=== PATIENT | female | born 1970 | race Caucasian/White ===

== ENCOUNTER → 2016-06-29 | Outpatient (CLI) | payer BC ==
--- NOTE | 2016-06-30 11:08 | MM ---
Reason for exam: screening (asymptomatic). Last mammogram was performed 1 year ago. History: Patient is nulliparous. Family history of breast cancer in paternal aunt at age 60 and breast cancer in paternal cousin at age 30. Taking hormonal contraceptives for 23 years beginning at age 18. Physical Findings: A clinical breast exam by your physician is recommended on an annual basis and results should be correlated with mammographic findings. MG Screening Mammo w CAD Bilateral CC and MLO view(s) were taken. Prior study comparison: June 27, 2015, bilateral MG screening mammo w CAD. August 02, 2014, bilateral MG screening mammo w CAD. June 29, 2013, bilateral digital screening mammo w/CAD. There are scattered fibroglandular densities. Finding: There are few typically benign round calcifications in the left breast. There is no discrete abnormality. ASSESSMENT: Benign, BI-RAD 2 RECOMMENDATION: Routine screening mammogram of both breasts in 1 year.
== END | disposition home or self-care (01) ==
LOC: RADMAMWWP 07:10
PROVIDERS: ATTEND Family Medicine
DX: Z12.31 Encounter for screening mammogram for malignant neoplasm of breast (principal)

== ENCOUNTER → 2017-08-25 | Outpatient (CLI) | payer BC ==
--- NOTE | 2017-08-26 09:49 | MM ---
Reason for exam: screening (asymptomatic). Last mammogram was performed 1 year and 2 months ago. History: Patient is nulliparous. Family history of breast cancer in paternal aunt at age 60 and breast cancer in paternal cousin at age 30. Taking hormonal contraceptives for 23 years beginning at age 18. Physical Findings: A clinical breast exam by your physician is recommended on an annual basis and results should be correlated with mammographic findings. MG 3D Screening Mammo W/Cad Bilateral CC and MLO view(s) were taken. Prior study comparison: June 29, 2016, bilateral MG screening mammo w CAD. June 27, 2015, bilateral MG screening mammo w CAD. There are scattered fibroglandular densities. No significant changes when compared with prior studies. ASSESSMENT: Benign, BI-RAD 2 RECOMMENDATION: Routine screening mammogram of both breasts in 1 year.
== END | disposition home or self-care (01) ==
LOC: RADMAMWWP 14:42
PROVIDERS: ATTEND Family Medicine
DX: Z12.31 Encounter for screening mammogram for malignant neoplasm of breast (principal)
CPT/HCPCS: 77063; 77067

== ENCOUNTER → 2018-09-14 | Outpatient (CLI) | payer BC ==
--- NOTE | 2018-09-15 15:03 | MM ---
Reason for exam: screening (asymptomatic). Last mammogram was performed 1 year and 1 month ago. History: Patient is nulliparous. Family history of breast cancer in paternal aunt at age 60 and breast cancer in paternal cousin at age 30. Taking hormonal contraceptives for 30 years beginning at age 18. Physical Findings: A clinical breast exam by your physician is recommended on an annual basis and results should be correlated with mammographic findings. MG 3D Screening Mammo W/Cad Bilateral CC, MLO, and XCCL view(s) were taken. Prior study comparison: August 25, 2017, bilateral MG 3d screening mammo w/cad. June 29, 2016, bilateral MG screening mammo w CAD. There are scattered fibroglandular densities. No suspicious abnormality. No significant changes when compared with prior studies. ASSESSMENT: Negative, BI-RAD 1 RECOMMENDATION: Routine screening mammogram of both breasts in 1 year.
== END | disposition home or self-care (01) ==
LOC: RADMAMWWP 14:01
PROVIDERS: ATTEND Family Medicine
DX: Z12.31 Encounter for screening mammogram for malignant neoplasm of breast (principal)
CPT/HCPCS: 77063; 77067

== ENCOUNTER 2018-11-15 10:47 | Day surgery (SDC) | payer BC ==
[2018-11-13 14:50] VITALS: BMI 41.1
[~2018-11-15 10:47] MED LIST: LACTATED RINGERS 1,000 ML IV SCH; LIDOCAINE 1% 20 ML VIAL (10MG/ML) FOR IV START INTRADERMA PRN
--- NOTE | 2018-11-15 10:50 | P.GSHP ---
History of Present Illness H&P Date: 11/15/18 CHIEF COMPLAINT: Colon screen HISTORY OF PRESENT ILLNESS: The patient is a 48-year-old female who presents for colon screen. Lower endoscopy was offered for further evaluation and management. PAST MEDICAL HISTORY: Please see list. PAST SURGICAL HISTORY: Please see list. MEDICATIONS: Please see list. ALLERGIES: Please see list. SOCIAL HISTORY: No illicit drug use FAMILY HISTORY: No reports of Crohn disease or ulcerative colitis. REVIEW OF ORGAN SYSTEMS: CONSTITUTIONAL: No reports of fevers or chills. PHYSICAL EXAM: VITAL SIGNS: Stable GENERAL: Well-developed pleasant in no acute distress. HEENT: No scleral icterus. Extraocular movements grossly intact. Moist buccal mucosa. NECK: Supple without lymphadenopathy. CHEST: Unlabored respirations. Equal bilateral excursions. CARDIOVASCULAR: Regular rate and rhythm. Distal 2+ pulses. ABDOMEN: Soft, nontender, nondistended. MUSCULOSKELETAL: No clubbing, cyanosis, or edema. ASSESSMENT: 1. Colon screen. PLAN: 1. Recommend proceeding with a lower endoscopy Past Medical History Past Medical History: GERD/Reflux Additional Past Medical History / Comment(s): HX KIDNEY STONES, History of Any Multi-Drug Resistant Organisms: None Reported Additional Past Surgical History / Comment(s): WISDOM TEETH REMOVED. COLONOSCOPY. DENTAL IMPLANTS Past Anesthesia/Blood Transfusion Reactions: Motion Sickness Additional Past Anesthesia/Blood Transfusion Reaction / Comment(s): NEVER HAS HAD GENERAL ANETHESIA Smoking Status: Former smoker - Past Family History Mother Additional Family Medical History / Comment(s): TO DELAYED DROWNING Father Family Medical History: Dementia Additional Family Medical History / Comment(s): ALZHEIMER'S Sister(s) Family Medical History: Cancer Additional Family Medical History / Comment(s): SISTER AND NIECE-CERVICAL CA Medications and Allergies Home Medications Medication Instructions Recorded Confirmed Type Norgestimate-Ethinyl Estradiol 1 each PO QAM 06/18/14 11/13/18 History [Tri-Sprintec Tablet] Allergies Allergy/AdvReac Type Severity Reaction Status Date / Time Penicillins Allergy THRUSH Verified 11/13/18 14:43 codeine AdvReac Nausea & Verified 11/13/18 14:43 Vomiting
[2018-11-15 11:10] VITALS: TEMP 98
[2018-11-15] MEDS ORDERED: LIDOCAINE 1% INJ 10MG/ML (20 ML MDV) ONE (12:37)
[2018-11-15] MEDS ORDERED: PROPOFOL 10 MG/ML 20 ML VIAL IV ONE (12:37)
--- NOTE | 2018-11-15 13:05 | P.PCN ---
Date of Procedure: 11/15/18 Description of Procedure: PREOPERATIVE DIAGNOSIS: Colonoscopy screening, high risk Family history of colon polyps, father POSTOPERATIVE DIAGNOSIS: Colonoscopy screening, high risk Family history of colon polyps, father Colon polyp sigmoid and descending colon OPERATION: Colonoscopy to the ileocecal valve and appendiceal orifice. Colonoscopy with multiple polypectomies using cold forceps biopsies. SURGEON: Macie Vega MD. ANESTHESIA: MAC. INDICATIONS: The patient is a 53-year-old female who presents for colonoscopy screening. She has family history of colon polyps. Benefits and risks were described and informed consent was obtained. DESCRIPTION OF PROCEDURE: The patient had undergone Gatorade, MiraLAX and Dulcolax prep. She had been brought into the operating room and laid in the left lateral decubitus position. After adequate intravenous sedation, the rectum was examined with 2% lidocaine jelly. No external hemorrhoids were encountered. The rectal tone was within normal limits. No lesions were palpated in the rectal vault. An Olympus colonoscope was advanced until the ileocecal valve and appendiceal orifice were clearly viewed. The prep was good. Abdominal wall pressure was used to advance the scope. No scattered diverticulosis was encountered. Multiple colonic poly ps were found and cold forcep biopsy. No evidence of focal colitis was found. Retroflexion of the scope demonstrated grade 1 internal hemorrhoids without active bleeding or inflammation. The colon was desufflated. The patient had tolerated the procedure well. Withdrawal time was over 6 minutes. FINDINGS: Aronchick preparation quality scale 2 (1-5) Internal hemorrhoids, grade 1 No external hemorrhoids No arteriovenous malformations. Removal of 3 polyps: - Cold forceps biopsy at 35 cm from the anal verge, 4 mm polyp. - Cold forceps biopsy at 20 cm from the anal verge, 3 mm polyp. - Cold forceps biopsy at 18 cm from the anal verge, 4 mm polyp. No sigmoid diverticulosis No focal colitis. RECOMMENDATIONS: Repeat colonoscopy in 5 years, 2023 Plan - Discharge Summary Discharge Rx Participant: No New Discharge Prescriptions: No Action Norgestimate-Ethinyl Estradiol [Tri-Sprintec Tablet] 1 each PO QAM Discharge Medication List Norgestimate-Ethinyl Estradiol [Tri-Sprintec Tablet] 1 each PO QAM 06/18/14 [History] Follow up Appointment(s)/Referral(s): Macie Vega MD [STAFF PHYSICIAN] - As Needed Patient Instructions/Handouts: Colorectal Polyps (DC) Activity/Diet/Wound Care/Special Instructions: Repeat colonoscopy in 5 years, 2023 Discharge Disposition: HOME SELF-CARE
[2018-11-15 13:25] VITALS: BP 131/81; PULSE 76; RESP 18
== END 2018-11-15 13:34 | disposition home or self-care (01) ==
LOC: ORWHC2ENDO 10:47
PROVIDERS: ATTEND Surgery Plastic and Reconstructive Surgery
DX: Z12.11 Encounter for screening for malignant neoplasm of colon (principal); K63.5 Polyp of colon; K64.0 First degree hemorrhoids; K21.9 Gastro-esophageal reflux disease without esophagitis; E66.01 Morbid (severe) obesity due to excess calories; Z68.41 Body mass index [BMI] 40.0-44.9, adult; Z87.891 Personal history of nicotine dependence; Z79.3 Long term (current) use of hormonal contraceptives; Z81.8 Family history of other mental and behavioral disorders; Z87.442 Personal history of urinary calculi; Z88.5 Allergy status to narcotic agent; Z88.0 Allergy status to penicillin; Z80.49 Family history of malignant neoplasm of other genital organs
CPT/HCPCS: 81025; 88305; 45380; J2001; J2704

== ENCOUNTER → 2019-01-08 | Outpatient (CLI) | payer BC ==
--- NOTE | 2019-01-08 15:06 | P.HPBAR ---
Bariatric H&P - History & Physicial H&P Date: 01/08/19 History & Physicial: Visit/CC: Patient initial contact: Initial weight: Initial weight in pounds: Height: Initial BMI: Last weight: Current weight: 243 Current weight in pounds: Current BMI: [place] body weight (based on NIH guidelines): Excess body weight loss: The patient is a 48 year-old F who presents for Bariatric Assessment. Presents today for sleeve gastrectomy consultation. Patient is a morbidly obese. Her BM I is over 40. She has failed multiple attempts to lose weight in the past. She has multiple comorbidities. Past Medical History Past Medical History: GERD/Reflux Additional Past Medical History / Comment(s): HX KIDNEY STONES, History of Any Multi-Drug Resistant Organisms: None Reported Additional Past Surgical History / Comment(s): WISDOM TEETH REMOVED. COLONOSCOPY. DENTAL IMPLANTS Past Anesthesia/Blood Transfusion Reactions: Motion Sickness Additional Past Anesthesia/Blood Transfusion Reaction / Comm: NEVER HAS HAD GENERAL ANETHESIA Smoking Status: Former smoker - Past Family History Mother Additional Family Medical History / Comment(s): TO DELAYED DROWNING Father Family Medical History: Dementia Additional Family Medical History / Comment(s): ALZHEIMER'S Sister(s) Family Medical History: Cancer Additional Family Medical History / Comment(s): SISTER AND NIECE-CERVICAL CA Surgical - Exam - General well developed, well nourished, no distress - Eyes PERRL - ENT normal pinna - Neck no masses - Respiratory normal expansion - Cardiovascular Rhythm: regular - Abdomen Abdomen: soft, non tender Bariatric Assessment & Plan Plan: RBC, patient will be scheduled for EGD. She'll follow-up in the clinic with month. Discussion regarding sleeve gastrectomy. When over the risks and benefits of procedure including gastric staple line disruption, bleeding or scarring. Bariatric Checklist Checklist: Plan: Checklist: EGD: 1. Hiatal hernia: 2. H. Pylori: HgbA1c: Vitamin D: Smoking: Former smoker Primary care physician referral: Psychiatry clearance: Cardiology clearance: Sleep study: Diet journal: VTE risk score: VTE risk level: Rehab needs at discharge:
[2019-01-08 15:13] VITALS: BP 150/86; PULSE 86; RESP 16; TEMP 98.2; BMI 40.1
== END ==
LOC: BARWHC3 14:29
PROVIDERS: ATTEND Surgery
DX: E66.01 Morbid (severe) obesity due to excess calories (principal); Z68.41 Body mass index [BMI] 40.0-44.9, adult; Z87.891 Personal history of nicotine dependence
CPT/HCPCS: 99211

== ENCOUNTER 2019-03-02 07:06 | Day surgery (SDC) | payer BC ==
[2019-02-28 17:33] VITALS: BMI 41.1
[2019-03-02] MEDS ORDERED: LACTATED RINGERS 1,000 ML IV ONE (07:13)
[2019-03-02 07:26] VITALS: TEMP 98.6
[2019-03-02] MEDS ORDERED: LIDOCAINE 1% INJ 10MG/ML (20 ML MDV) ONE (07:40)
[2019-03-02] MEDS ORDERED: PROPOFOL 10 MG/ML 20 ML VIAL IV ONE (07:40)
[2019-03-02] MEDS ORDERED: GLYCOPYRROLATE 0.2 MG/ML 2 ML VIAL ONE (07:40)
--- NOTE | 2019-03-02 07:53 | P.GSHP ---
History of Present Illness H&P Date: 03/02/19 Chief Complaint: Morbid obesity, BMI 41 This is a 49-year-old female who presents today for EGD. Patient morbid obese. She is undergoing workup for sleeve gastrectomy. Her BMI is 41. Past Medical History Past Medical History: Osteoarthritis (OA) Additional Past Medical History / Comment(s): HX KIDNEY STONES, History of Any Multi-Drug Resistant Organisms: None Reported Additional Past Surgical History / Comment(s): WISDOM TEETH REMOVED. COLONOSCOPY. DENTAL IMPLANTS Past Anesthesia/Blood Transfusion Reactions: No Reported Reaction, Motion Sickness Additional Past Anesthesia/Blood Transfusion Reaction / Comment(s): NEVER HAS HAD GENERAL ANETHESIA Smoking Status: Former smoker - Past Family History Mother Additional Family Medical History / Comment(s): TO DELAYED DROWNING Father Family Medical History: Dementia Additional Family Medical History / Comment(s): ALZHEIMER'S Sister(s) Family Medical History: Cancer Additional Family Medical History / Comment(s): SISTER AND NIECE-CERVICAL CA Medications and Allergies Home Medications Medication Instructions Recorded Confirmed Type Norgestimate-Ethinyl Estradiol 1 each PO QAM 06/18/14 02/28/19 History [Tri-Sprintec Tablet] Multivitamins, Thera [Multivitamin 1 tab PO DAILY 01/08/19 02/28/19 History (formulary)] Potassium 99 mg PO DAILY 02/28/19 02/28/19 History Allergies Allergy/AdvReac Type Severity Reaction Status Date / Time codeine AdvReac Nausea & Verified 02/28/19 17:12 Vomiting Penicillins AdvReac THRUSH Verified 02/28/19 17:12 Surgical - Exam Vital Signs Temp Pulse Resp BP Pulse Ox 98.6 F 74 14 149/72 95 03/02/19 07:19 03/02/19 07:19 03/02/19 07:19 03/02/19 07:19 03/02/19 07:19 - General well developed, well nourished, no distress - Eyes PERRL - ENT normal pinna - Neck no masses - Respiratory normal expansion - Cardiovascular Rhythm: regular - Abdomen Abdomen: soft, non tender Assessment and Plan Assessment: Morbid obesity, BMI 41. We'll perform EGD.
--- NOTE | 2019-03-02 07:58 | P.OP ---
Date of Procedure: 03/02/19 Preoperative Diagnosis: Morbid obesity, BMI 41 Postoperative Diagnosis: Morbid obesity, BMI 41 Antral gastritis Procedure(s) Performed: EGD Anesthesia: MAC Surgeon: Nemesio Holguin Pathology: other (Antrum) Condition: stable Disposition: PACU Description of Procedure: Patient's placed on the endoscopy table in the lateral position. She received IV sedation. The gastroscope placed oropharynx and passed in the esophagus and into the stomach. Scope was then placed through the pylorus. First and second portion of the duodenum appeared normal. Scope was then brought back the antrum this appeared mildly inflamed. A biopsies performed. Scope was unretroflexed and remainder the stomach appeared normal. There is no significant hiatal hernia. The GE junction was at 40 cm. The distal esophagus. Normal. The proximal esophagus. Normal. Scope was withdrawn for patient.
[2019-03-02 08:17] VITALS: BP 145/76; PULSE 87; RESP 18
== END 2019-03-02 08:36 | disposition home or self-care (01) ==
LOC: ORWHC2ENDO 07:06
PROVIDERS: ATTEND Surgery
DX: K29.50 Unspecified chronic gastritis without bleeding (principal); E66.01 Morbid (severe) obesity due to excess calories; Z68.41 Body mass index [BMI] 40.0-44.9, adult; M19.90 Unspecified osteoarthritis, unspecified site; Z87.442 Personal history of urinary calculi; Z98.890 Other specified postprocedural states; Z87.891 Personal history of nicotine dependence; Z80.49 Family history of malignant neoplasm of other genital organs; Z79.899 Other long term (current) drug therapy; Z88.0 Allergy status to penicillin; Z88.5 Allergy status to narcotic agent; Z79.2 Long term (current) use of antibiotics
CPT/HCPCS: 88305; 43239; J2001; J2704

== ENCOUNTER → 2020-01-16 | Outpatient (CLI) | payer BC ==
--- NOTE | 2020-01-17 09:20 | MM ---
Reason for exam: screening (asymptomatic). Last mammogram was performed 1 year and 4 months ago. History: Patient is nulliparous. Family history of breast cancer in paternal aunt at age 60 and breast cancer in paternal cousin at age 30. Taking hormonal contraceptives for 30 years beginning at age 18. Physical Findings: A clinical breast exam by your physician is recommended on an annual basis and results should be correlated with mammographic findings. MG 3D Screening Mammo W/Cad Bilateral CC, MLO, and XCCL view(s) were taken. Prior study comparison: September 14, 2018, bilateral MG 3d screening mammo w/cad. August 25, 2017, bilateral MG 3d screening mammo w/cad. There are scattered fibroglandular densities. There are benign appearing round calcifications bilaterally. There is no discrete abnormality. ASSESSMENT: Benign, BI-RAD 2 RECOMMENDATION: Routine screening mammogram of both breasts in 1 year.
== END | disposition home or self-care (01) ==
LOC: RADMAMWWP 08:28
PROVIDERS: ATTEND Family Medicine
DX: Z12.31 Encounter for screening mammogram for malignant neoplasm of breast (principal)
CPT/HCPCS: 77063; 77067

== ENCOUNTER → 2020-05-07 | Outpatient (CLI) | payer BC ==
[2020-05-07 15:10] VITALS: BP 143/70; PULSE 78; RESP 20; TEMP 98.1; BMI 37.3
--- NOTE | 2020-05-07 15:48 | P.HPBAR ---
Bariatric H&P - History & Physicial H&P Date: 05/07/20 History & Physicial: Visit/CC: initial visit Patient initial contact: Initial weight: 110.393 kg Initial weight in pounds: 243.37 Height: 5 ft 5 in Initial BMI: 40.5 Last weight: Current weight: 101.605 kg Current weight in pounds: 224.00 Current BMI: 37.3 [place] body weight (based on NIH guidelines): 56.699 kg Excess body weight loss: 16.3% The patient is a 50 year-old F who presents for Bariatric Assessment. DATE OF SERVICE: 05/07/2020 REASON FOR CONSULTATION: Initial bariatric evaluation. HISTORY OF PRESENT ILLNESS: Ninoska Joyce is a 50-year-old female who comes with lifelong morbid obesity. She comes in looking into the sleeve. She has panniculitis for over 8 years. She is looking into the sleeve gastrectomy. She denies moderate gastroesophageal reflux disease. She denies family history of esophageal or stomach cancer. Her mother had hiatal hernia. She reports osteoarthritis of the hips, knees, and feet pain. She denies active sleep apnea. She has fatigue. She lifts moderately from her job. She denies deep venous thrombosis in the family. She denies chronic diarrhea. She denies moderate dysphagia. She denies any previous abdominal surgeries. Her last colonoscopy was over 3 years. She has history of polyps. She smoked 12 years ago. She presents for the first time in consultation for her morbid obesity. She does not want the band. At height of 5 feet 5 inches, her ideal body weight is 149 pounds. She comes in 224 pounds. Her body mass index is 37.3. She is 75 pounds overweight. PAST MEDICAL HISTORY: 1. Morbid obesity due to excess calories 2. Body mass index of 37.3, initial 3. Panniculitis 4. Osteoarthritis of the hips 5. Osteoarthritis of the knees 6. Osteoarthritis of the feet 7. Colon polyps 8. Kidney stones. PAST SURGICAL HISTORY: 1. [place] tooth extraction 2. Colonoscopy 3. Dental implants HOME MEDICATIONS: Home Medications Medication Instructions Recorded Confirmed Norgestimate-Ethinyl Estradiol 1 each PO QAM 06/18/14 05/07/20 [Tri-Sprintec Tablet] Multivitamins, Thera [Multivitamin 1 tab PO DAILY 01/08/19 05/07/20 (formulary)] Potassium 99 mg PO DAILY 02/28/19 05/07/20 ALLERGIES: Allergies Allergy/AdvReac Type Severity Reaction Status Date / Time codeine AdvReac Nausea & Verified 05/07/20 14:59 Vomiting Penicillins AdvReac THRUSH Verified 05/07/20 14:59 SOCIAL HISTORY: Past tobacco use. FAMILY HISTORY: No family history of ulcerative colitis disease or Crohn's disease. Family history of morbid obesity. No lupus in the family. No reports of stomach or esophageal cancer. Hiatal hernia in mother. REVIEW OF ORGAN SYSTEMS: CONSTITUTIONAL: At height of 5 feet 5 inches, her ideal body weight is 149 pounds. She comes in 224 pounds. Her body mass index is 37.3. HEENT: Denies any active troubles with vision or hearing. ENDOCRINE: Denies diabetes. No hypothyroidism. CARDIOVASCULAR: Denies past reports of palpitations or heart attacks or chest pain. RESPIRATORY: Has daytime somnolence. Denies asthma. She has fatigue. GASTROINTESTINAL: Denies any bright red blood per rectum. No diarrhea. No constipation. MUSCULOSKELETAL: Has lower back pain and joint pain. Has osteoarthritis of the knees. NEURO: No headaches. No seizure disorders. PSYCH: Denies depression. No suicidal ideation. RHEUMATOLOGIC: No lupus. No rheumatoid arthritis. HEMATOLOGIC: Denies any abnormal bleeding or bruising. No personal history of DVTs. SKIN: No rash. No skin cancer. PHYSICAL EXAM: VITAL SIGNS: Height 5 foot 5 inches, weight 224 pounds. BMI 37.3 Vital Signs Temp 98.1 F 05/07/20 14:53 Pulse 78 05/07/20 14:53 Resp 20 05/07/20 14:53 BP 143/70 05/07/20 14:53 Pulse Ox GENERAL: Well-developed in no acute distress. HEENT: No scleral icterus. Extraocular movements grossly intact. Hears conversational speech. No nasal drainage. NECK: Supple without lymphadenopathy. CHEST: Nonlabored respirations with equal bilateral excursions. CARDIOVASCULAR: Regular rate and regular rhythm. Distal 2+ pulses. ABDOMEN: Obese, soft, nontender, nondistended. MUSCULOSKELETAL: No clubbing, cyanosis. NEURO: No focal or lateralizing signs. Cranial nerves 2 through 12 grossly within normal limits. PSYCH: Appropriate affect. Alert and oriented to person, place and time. SKIN: Good skin turgor. Well perfused. ASSESSMENT: 1. Morbid obesity due to excess calories 2. Body mass index of 37.3, initial 3. Panniculitis 4. Osteoarthritis of the hips 5. Osteoarthritis of the knees 6. Osteoarthritis of the feet 7. Colon polyps 8. Family history hiatal hernia PLAN: 1. Surgical options including a band, gastric bypass, sleeve gastrectomy were described in detail. Alternatives such as gastric balloon including duodenal switch were described. She is looking into the sleeve. 2. The [place] bariatric surgical collaborative data and outcomes calculator were described with surgical options. 3. Recommend a bariatric metabolic panel to evaluate for micro- including macronutrient deficiencies. 4. Recommend evaluation and treatment for sleep apnea. 5. Dietary surveillance and counseling was reviewed. Increased protein intake over 65 grams daily advised. 6. Will need cardiac risk assessment. 7. Recommend medical risk assessment. 8. Psych assessment per insurance guidelines. 9. Recommend upper endoscopy 10. Recommend 12-lead EKG. 11. Recommend esophagram for family history of hiatal hernia. Thank you for this consultation. Past Medical History Past Medical History: Osteoarthritis (OA) Additional Past Medical History / Comment(s): HX KIDNEY STONES, History of Any Multi-Drug Resistant Organisms: None Reported Additional Past Surgical History / Comment(s): WISDOM TEETH REMOVED. COLONOSCOPY. DENTAL IMPLANTS Past Anesthesia/Blood Transfusion Reactions: No Reported Reaction, Motion Sickness Additional Past Anesthesia/Blood Transfusion Reaction / Comm: NEVER HAS HAD GENERAL ANETHESIA Past Psychological History: No Psychological Hx Reported Smoking Status: Former smoker Past Alcohol Use History: Occasional Additional Past Alcohol Use History / Comment(s): STARTED SMOKING AT AGE 13 QUIT SMOKING APPROX 2008, SMOKED 1/2 PPD Past Drug Use History: None Reported - Past Family History Mother Additional Family Medical History / Comment(s): TO DELAYED DROWNING Father Family Medical History: Dementia Additional Family Medical History / Comment(s): ALZHEIMER'S Sister(s) Family Medical History: Cancer Additional Family Medical History / Comment(s): SISTER AND NIECE-CERVICAL CA Surgical - Exam Vital Signs Temp Pulse Resp BP 98.1 F 78 20 143/70 05/07/20 14:53 05/07/20 14:53 05/07/20 14:53 05/07/20 14:53 Bariatric Checklist Checklist: Plan: Checklist: EGD: 1. Hiatal hernia: 2. H. Pylori: HgbA1c: Vitamin D: Smoking: Former smoker Primary care physician referral: Dr. Dotson ([place]) Psychiatry clearance: Cardiology clearance: Sleep study: Diet journal: VTE risk score: VTE risk level: Rehab needs at discharge:
== END | disposition home or self-care (01) ==
LOC: BARWHC3 14:21
PROVIDERS: ATTEND Surgery Plastic and Reconstructive Surgery
DX: E66.01 Morbid (severe) obesity due to excess calories (principal); Z68.37 Body mass index [BMI] 37.0-37.9, adult; M79.3 Panniculitis, unspecified; M17.0 Bilateral primary osteoarthritis of knee; M16.0 Bilateral primary osteoarthritis of hip; M19.079 Primary osteoarthritis, unspecified ankle and foot; K63.5 Polyp of colon; Z83.79 Family history of other diseases of the digestive system; Z88.0 Allergy status to penicillin; Z88.5 Allergy status to narcotic agent; Z79.899 Other long term (current) drug therapy
CPT/HCPCS: 99211

== ENCOUNTER → 2020-06-24 | Outpatient (CLI) | payer BC ==
[2020-06-24 19:49] LABS: HCT 41.2 % (37.2-46.3); HGB 13.2 g/dL (12.0-15.0); MCH 28.9 pg (27.0-32.0); MCV 90.4 fL (80.0-97.0); Mean Platelet Volume 9.7 fL (9.5-12.2); Platelet Count 278 X 10*3/uL (140-440); RBC 4.56 X 10*6/uL (4.10-5.20); RDW 12.9 % (11.5-14.5); WBC 11.38 X 10*3/uL (4.50-10.00)
[2020-06-24 21:00] LABS: Ferritin 161.3 ng/mL (10.0-291.0)
[2020-06-24 21:19] LABS: Folate, Serum >24.0 ng/mL
[2020-06-24 22:36] LABS: % Iron Saturation 22.79 (12.00-45.00); ALT 17 U/L (8-44); AST 17 U/L (13-35); African American GFR (CKD) 98.2 (60.0-200.0); Albumin/Globulin Ratio 1.95 (1.60-3.17); Alkaline Phosphatase 59 U/L (41-126); Calcium 9.3 mg/dL (8.7-10.3); Carbon Dioxide 24.7 mmol/L (21.6-31.8); Chloride 105 mmol/L (96-109); Chol/HDL Ratio 2.76; Cholesterol 193 mg/dL (0-200); Globulin 2.2 g/dL (1.6-3.3); Glucose 78 mg/dL (70-110); Iron 85 ug/dL (50-170); LDL Cholesterol,Calculated 72.6 mg/dL (0.0-131.0); Magnesium 1.8 mg/dL (1.5-2.4); Non-African American GFR(CKD) 84.8 (60.0-200.0); Phosphorus 3.3 mg/dL (2.4-5.1); Potassium 5.2 mmol/L (3.5-5.5); Sodium 138 mmol/L (135-145); Total Bilirubin 0.4 mg/dL (0.3-1.2); Total Iron Binding Capacity 373 ug/dL (228-460); Total Protein 6.5 g/dL (6.2-8.2)
[2020-06-24 23:09] LABS: Hemoglobin A1C 5.3 % (4.0-6.0)
[2020-06-25 03:01] LABS: INR 0.91 (0.90-1.11); Partial Thromboplastin Time 24.8 sec (23.5-31.0)
[2020-06-25 14:17] LABS: Zinc, Serum 30 ug/dL (60-130)
[2020-06-26 08:06] LABS: Vitamin A 68 ug/dL (38-106)
[2020-06-27 01:13] LABS: Selenium 154 mcg/L (63-160)
[2020-06-27 14:26] LABS: Vit B1(Thiamine) 77 ug/L (38-122)
== END | disposition home or self-care (01) ==
LOC: LABWHC1 10:42
PROVIDERS: ATTEND Surgery Plastic and Reconstructive Surgery
DX: D50.8 Other iron deficiency anemias (principal); E55.9 Vitamin D deficiency, unspecified; E66.01 Morbid (severe) obesity due to excess calories; N19 Unspecified kidney failure; K50.90 Crohn's disease, unspecified, without complications; K90.89 Other intestinal malabsorption; K74.1 Hepatic sclerosis
CPT/HCPCS: 36415; 80053; 80061; 82306; 82525; 82607; 82728; 82746; 83036; 83540; 83550; 83735; 83970; 84100; 84134; 84255; 84425; 84443; 84590; 84630; 85027; 85610; 85730; 93005

== ENCOUNTER 2020-07-14 06:05 | Day surgery (SDC) | payer BC ==
[2020-07-11 14:35] VITALS: BMI 39.1
--- NOTE | 2020-07-14 05:03 | P.GSHP ---
History of Present Illness H&P Date: 07/14/20 CHIEF COMPLAINT: GERD HISTORY OF PRESENT ILLNESS: The patient is a 50-year-old female who presents reports gastroesophageal reflux disease. Upper endoscopy was offered for further evaluation and management. PAST MEDICAL HISTORY: Please see list. PAST SURGICAL HISTORY: Please see list. MEDICATIONS: Please see list. ALLERGIES: Please see list. SOCIAL HISTORY: No illicit drug use FAMILY HISTORY: No reports of Crohn disease or ulcerative colitis. REVIEW OF ORGAN SYSTEMS: CONSTITUTIONAL: No reports of fevers or chills. GI: Denies any blood in stools or constipation. PHYSICAL EXAM: VITAL SIGNS: Stable GENERAL: Well-developed and pleasant in no acute distress. HEENT: No scleral icterus. Extraocular movements grossly intact. Moist buccal mucosa. NECK: Supple without lymphadenopathy. CHEST: Unlabored respirations. Equal bilateral excursions. CARDIOVASCULAR: Regular rate and rhythm. Distal 2+ pulses. ABDOMEN: Soft, nondistended. MUSCULOSKELETAL: No clubbing, cyanosis, or edema. ASSESSMENT: 1. Gastroesophageal reflux disease PLAN: 1. Recommend proceeding with an upper endoscopy Past Medical History Past Medical History: Osteoarthritis (OA) Additional Past Medical History / Comment(s): HX KIDNEY STONES. History of Any Multi-Drug Resistant Organisms: None Reported Additional Past Surgical History / Comment(s): EGD. WISDOM TEETH REMOVED. COLONOSCOPY. DENTAL IMPLANTS Past Anesthesia/Blood Transfusion Reactions: No Reported Reaction, Motion Sickness Additional Past Anesthesia/Blood Transfusion Reaction / Comment(s): NEVER HAS HAD GENERAL ANETHESIA. Past Psychological History: No Psychological Hx Reported Smoking Status: Former smoker Past Alcohol Use History: Occasional Additional Past Alcohol Use History / Comment(s): STARTED SMOKING AT AGE 13 QUIT SMOKING APPROX 2008, SMOKED 1/2 PPD. Past Drug Use History: None Reported - Past Family History Mother Additional Family Medical History / Comment(s): TO DELAYED DROWNING. Father Family Medical History: Dementia Additional Family Medical History / Comment(s): ALZHEIMER'S Sister(s) Family Medical History: Cancer Additional Family Medical History / Comment(s): SISTER AND NIECE-CERVICAL CA Medications and Allergies Home Medications Medication Instructions Recorded Confirmed Type Norgestimate-Ethinyl Estradiol 1 each PO QAM 06/18/14 07/11/20 History [Tri-Sprintec Tablet] Multivitamins, Thera [Multivitamin 1 tab PO DAILY 01/08/19 07/11/20 History (formulary)] Cholecalciferol [Vitamin D3 (25 125 mcg PO DAILY 07/11/20 07/11/20 History Mcg = 1000 Iu)] Cyanocobalamin (Vitamin B-12) 1,000 mcg PO DAILY 07/11/20 07/11/20 History [Vitamin B-12] Glucosamine/Chondr Strauss A Sod [Osteo 1 each PO DAILY 07/11/20 07/11/20 History Bi-Flex Caplet] Vitamin C/Biotin [Hair, Skin and 1 tab PO DAILY 07/11/20 07/11/20 History Nails] Allergies Allergy/AdvReac Type Severity Reaction Status Date / Time codeine AdvReac Nausea & Verified 07/11/20 14:20 Vomiting Penicillins AdvReac THRUSH Verified 07/11/20 14:20
[~2020-07-14 06:05] MED LIST changes: -LIDOCAINE 1% 20 ML VIAL (10MG/ML) FOR IV START INTRADERMA PRN
[2020-07-14] MEDS ORDERED: LIDOCAINE 1% (10MG/ML) FOR IV START INTRADERMA ONE (06:29)
[2020-07-14 06:37] VITALS: RESP 16; TEMP 98.4
[2020-07-14] MEDS ORDERED: LIDOCAINE 1% INJ 10MG/ML (20 ML MDV) ONE (07:08)
[2020-07-14] MEDS ORDERED: PROPOFOL 10 MG/ML 20 ML VIAL IV ONE (07:08)
--- NOTE | 2020-07-14 07:28 | P.PCN ---
Date of Procedure: 07/14/20 Description of Procedure: PREOPERATIVE DIAGNOSIS: Gastroesophageal reflux disease. Morbid obesity. POSTOPERATIVE DIAGNOSIS: Morbid obesity. Gastric ulcer without bleeding Gastroesophageal reflux disease. OPERATION: Esophagogastroduodenoscopy with biopsies along antrum for gastric ulcer SURGEON: Macie Vega MD ANESTHESIA: MAC. INDICATIONS: The patient is a 50-year-old female who presents with a history of reflux disease. Benefits and risks of the procedure were described. Informed consent wa s obtained. DESCRIPTION: The patient was brought into the endoscopy suite and laid in the left lateral decubitus position. An Olympus gastroscope was passed along the posterior oropharynx down to the distal esophagus where the squamocolumnar junction was encountered at 37 cm from the incisors. The stomach was entered and no bile reflux was found. Additional findings are listed below. Biopsies with cold forceps were obtained of the antrum. The first through third portion of the duodenum was examined and unremarkable. Retroflexion of the scope confirmed Hill grade 1 lower esophageal valve. The squamocolumnar junction demonstrated no LA grade A erosive esophagitis. The stomach was desufflated. The patient tolerated the procedure well. FINDINGS: Squamocolumnar junction 37 cm from the incisors. Diaphragmatic hiatus at 37 cm. Hill grade 1 lower esophageal valve. No LA grade A erosive esophagitis. No active duodenitis. Acute superficial punctate gastric ulcers along antrum, biopsied RECOMMENDATIONS: Upper endoscopy as needed. Omeprazole 40 mg daily for 2 weeks Plan - Discharge Summary Discharge Rx Participant: No New Discharge Prescriptions: New Omeprazole [PriLOSEC] 40 mg PO DAILY #14 cap Continue Norgestimate-Ethinyl Estradiol [Tri-Sprintec Tablet] 1 each PO QAM Multivitamins, Thera [Multivitamin (formulary)] 1 tab PO DAILY Vitamin C/Biotin [Hair, Skin and Nails] 1 tab PO DAILY Cholecalciferol [Vitamin D3 (25 Mcg = 1000 Iu)] 125 mcg PO DAILY Glucosamine/Chondr Strauss A Sod [Osteo Bi-Flex Caplet] 1 each PO DAILY Cetirizine HCl [Zyrtec] 10 mg PO DAILY Cyanocobalamin (Vitamin B-12) [Vitamin B-12] 1,000 mcg PO DAILY Discharge Medication List Norgestimate-Ethinyl Estradiol [Tri-Sprintec Tablet] 1 each PO QAM 06/18/14 [History] Multivitamins, Thera [Multivitamin (formulary)] 1 tab PO DAILY 01/08/19 [History] Cholecalciferol [Vitamin D3 (25 Mcg = 1000 Iu)] 125 mcg PO DAILY 07/11/20 [History] Cyanocobalamin (Vitamin B-12) [Vitamin B-12] 1,000 mcg PO DAILY 07/11/20 [History] Glucosamine/Chondr Strauss A Sod [Osteo Bi-Flex Caplet] 1 each PO DAILY 07/11/20 [History] Vitamin C/Biotin [Hair, Skin and Nails] 1 tab PO DAILY 07/11/20 [History] Cetirizine HCl [Zyrtec] 10 mg PO DAILY 07/14/20 [History] Omeprazole [PriLOSEC] 40 mg PO DAILY #14 cap 07/14/20 [Rx] Follow up [facility]ment[facility]Ref[facility] [place] [facility] - [facility]20 Patient Instructions/Handouts: Peptic Ulcer (DC), Diet for Stomach Ulcers and Gastritis (ED) Discharge/Stand Alone Forms: Work/School Release
[2020-07-14 07:55] VITALS: BP 141/77; PULSE 77
== END 2020-07-14 07:57 | disposition home or self-care (01) ==
LOC: ORWHC2ENDO 06:05
PROVIDERS: ATTEND Surgery Plastic and Reconstructive Surgery
DX: K29.50 Unspecified chronic gastritis without bleeding (principal); K25.9 Gastric ulcer, unspecified as acute or chronic, without hemorrhage or perforation; K21.9 Gastro-esophageal reflux disease without esophagitis; E66.01 Morbid (severe) obesity due to excess calories; Z80.9 Family history of malignant neoplasm, unspecified; Z87.891 Personal history of nicotine dependence; Z88.5 Allergy status to narcotic agent; Z88.0 Allergy status to penicillin
CPT/HCPCS: 81025; 88305; 43239; J2001; J2704

== ENCOUNTER → 2020-07-21 | Outpatient (CLI) | payer BC | CPT/HCPCS: 97804 ==

== ENCOUNTER → 2020-07-23 | Outpatient (CLI) | payer BC ==
--- NOTE | 2020-07-23 15:08 | P.PN ---
Subjective Progress Note Date: 07/23/20 DATE OF SERVICE: 07/23/2020 CHIEF COMPLAINT: Morbid obesity. HISTORY OF PRESENT ILLNESS: Ninoska Joyce is a 50-year-old female who comes in with lifelong morbid obesity. She comes in looking into the sleeve. She reports nausea and vomiting including history of post-op nausea and vomiting. She has co mpleted upper endoscopy. She presents for follow-up. At height of 5 feet 5 inches, her ideal body weight is 149 pounds. She comes in 234 pounds from 224 pounds, 3 months ago. She has gained 11 pounds in 3 months. Her body mass index is up to 38.8. She is 86 pounds overweight. PAST MEDICAL HISTORY: 1. Morbid obesity due to excess calories 2. Body mass index of 37.3, initial 3. Panniculitis 4. Osteoarthritis of the hips 5. Osteoarthritis of the knees 6. Osteoarthritis of the feet 7. Colon polyps 8. Kidney stones. PAST SURGICAL HISTORY: 1. [place] tooth extraction 2. Colonoscopy 3. Dental implants HOME MEDICATIONS: Home Medications Medication Instructions Recorded Confirmed Norgestimate-Ethinyl Estradiol 1 each PO QAM 06/18/14 09/10/20 [Tri-Sprintec Tablet] Multivitamins, Thera [Multivitamin 1 tab PO DAILY 01/08/19 09/10/20 (formulary)] Cholecalciferol [Vitamin D3 (25 25 mcg PO DAILY 07/11/20 09/10/20 Mcg = 1000 Iu)] Cyanocobalamin (Vitamin B-12) 1,000 mcg PO DAILY 07/11/20 09/10/20 [Vitamin B-12] Glucosamine/Chondr Strauss A Sod [Osteo 1 each PO DAILY 07/11/20 09/10/20 Bi-Flex Caplet] Vitamin C/Biotin [Hair, Skin and 1 tab PO DAILY 07/11/20 09/10/20 Nails] Cetirizine HCl [Zyrtec] 10 mg PO DAILY 07/14/20 09/10/20 Ergocalciferol [Vitamin D2 (1250 1,250 mcg PO WEEKLY 07/21/20 09/10/20 Mcg = 25044 Iu)] Zinc 50 mg PO DAILY 07/21/20 09/10/20 Ascorbic Acid [Vitamin C] 1,000 mg PO DAILY 09/10/20 09/10/20 Cannabidiol (Cbd) [Epidiolex] 1 dose TOPICAL DAILY PRN 09/10/20 09/10/20 Citrimax 1 dose PO DAILY 09/10/20 L.acidoph,Paracasei, B.lactis 1 each PO DAILY 09/10/20 09/10/20 [Probiotic] Magnesium Citrate 0 ml PO DAILY 09/10/20 09/10/20 ALLERGIES: Allergies Allergy/AdvReac Type Severity Reaction Status Date / Time codeine AdvReac Nausea & Verified 09/10/20 15:29 Vomiting Penicillins AdvReac THRUSH Verified 09/10/20 15:29 SOCIAL HISTORY: Past tobacco use. FAMILY HISTORY: No family history of ulcerative colitis disease or Crohn's disease. Family history of morbid obesity. No lupus in the family. No reports of stomach or esophageal cancer. Hiatal hernia in mother. REVIEW OF ORGAN SYSTEMS: CONSTITUTIONAL: At height of 5 feet 5 inches, her ideal body weight is 149 pounds. She comes in 234 pounds from 224 pounds, 3 months ago. She has gained 11 pounds in 3 months. Her body mass index is up to 38.8. She is 86 pounds overweight. HEENT: Denies any active troubles with vision or hearing. ENDOCRINE: Denies diabetes. No hypothyroidism. CARDIOVASCULAR: Denies past reports of palpitations or heart attacks or chest pain. RESPIRATORY: Has daytime somnolence. Denies asthma. She has fatigue. GASTROINTESTINAL: Denies any bright red blood per rectum. No diarrhea. No constipation. She has nausea and vomiting. MUSCULOSKELETAL: Has lower back pain and joint pain. Has osteoarthritis of the knees. NEURO: No headaches. No seizure disorders. PSYCH: Denies depression. No suicidal ideation. RHEUMATOLOGIC: No lupus. No rheumatoid arthritis. HEMATOLOGIC: Denies any abnormal bleeding or bruising. No personal history of DVTs. SKIN: No rash. No skin cancer. PHYSICAL EXAM: VITAL SIGNS: Height 5 foot 5 inches, weight 234 pounds. BMI 38.8 Vital Signs Temp 98.0 F 07/23/20 14:25 Pulse 77 07/23/20 14:25 Resp 18 07/23/20 14:25 BP 145/80 07/23/20 14:25 Pulse Ox GENERAL: Well-developed in no acute distress. HEENT: No scleral icterus. Extraocular movements grossly intact. Hears conversational speech. No nasal drainage. NECK: Supple without lymphadenopathy. CHEST: Nonlabored respirations with equal bilateral excursions. CARDIOVASCULAR: Regular rate and regular rhythm. Distal 2+ pulses. ABDOMEN: Obese, soft, nontender, nondistended. MUSCULOSKELETAL: No clubbing, cyanosis. NEURO: No focal or lateralizing signs. Cranial nerves 2 through 12 grossly within normal limits. PSYCH: Appropriate affect. Alert and oriented to person, place and time. SKIN: Good skin turgor. Well perfused. LABS: WBC is elevated. Triglycerides elevated. Vitamin D is low. PTH is elevated EKG: Normal sinus rhythm EGD FINDINGS: Squamocolumnar junction 37 cm from the incisors. Diaphragmatic hiatus at 37 cm. Hill grade 1 lower esophageal valve. No LA grade A erosive esophagitis. No active duodenitis. Acute superficial punctate gastric ulcers along antrum, biopsied Final Pathologic Diagnosis STOMACH, BIOPSY: Mild chronic erosive gastritis. ASSESSMENT: 1. Morbid obesity due to excess calories 2. Body mass index of 37.3, initial 3. Panniculitis 4. Osteoarthritis of the hips 5. Osteoarthritis of the knees 6. Osteoarthritis of the feet 7. Colon polyps 8. Family history hiatal hernia 9. Leukocytosis 10. Hypertriglyceridemia 11. Vitamin D deficiency 12. Secondary hyperparathyroidism 13. Copper excess 14. Zinc deficiency 15. Gastric ulcers PLAN: 1. Bariatric options between a sleeve, band and a Gaby-en-Y gastric bypass were reviewed in detail. The patient elected for a sleeve gastrectomy. Robotic assisted approach described. 2. The [place] [facility] Data was also reviewed with benefits and risks as described. 3. An 8 page second-generation bariatric consent form was reviewed in detail including potential of bleeding, infection, leaks, adequate weight loss, nutritional deficiencies which the patient demonstrated understanding of the risks. 4. A 2 week high-protein low caloric 800 kcal diet described to address hepatomegaly. 5. Preoperative labs including complete metabolic panel and CBC with type and screen recommended. 6. DVT prophylaxis per [place] [facility]. 7. Antibiotic prophylaxis. 8. Inpatient hospitalization anticipated for more than 2 nights. 9. All questions and concerns were addressed with the patient. 10. COVID vaccine reviewed and recommended. 11. Overall, patient has expressed understanding of bariatric care including postoperative diet and commitment of lifestyle. Patient should benefit from surgical intervention for correction of her morbid obesity. Objective - Vital Signs Vital signs: Vital Signs Temp 98.0 F 07/23/20 14:25 Pulse 77 07/23/20 14:25 Resp 18 07/23/20 14:25 BP 145/80 07/23/20 14:25 Pulse Ox Intake & Output 07/22/20 07/23/20 07/23/20 18:59 06:59 18:59 Weight 106.594 kg
== END | disposition home or self-care (01) ==
CPT/HCPCS: 99211

== ENCOUNTER → 2020-09-10 | Outpatient (CLI) | payer BC ==
[2020-09-10 15:58] LABS: Basophils # (A) 0.1 k/uL (0-0.2); Basophils % (A) 1 %; Eosinophils # (A) 0.1 k/uL (0-0.7); Eosinophils % (A) 2 %; HCT 34.9 % (34.0-46.0); Lymphocytes # (A) 2.4 k/uL (1.0-4.8); Lymphocytes % (A) 30 %; MCH 29.6 pg (25.0-35.0); MCHC 34.5 g/dL (31.0-37.0); MCV 85.8 fL (80.0-100.0); Mean Platelet Volume 6.8; Monocytes # (A) 0.4 k/uL (0-1.0); Monocytes % (A) 6 %; Neutrophils # (A) 4.8 k/uL (1.3-7.7); Neutrophils % (A) 60 %; Platelet Count 236 k/uL (150-450); RBC 4.06 m/uL (3.80-5.40); RDW 12.9 % (11.5-15.5); WBC 7.9 k/uL (3.8-10.6)
[2020-09-10 16:12] LABS: ALT 25 U/L (4-34); AST 29 U/L (14-36); African American GFR (CKD) >90 (>60 ml/min/1.73 sqM); Albumin 4.1 g/dL (3.5-5.0); Alkaline Phosphatase 58 U/L (38-126); Anion Gap 8 mmol/L; Blood Urea Nitrogen 20 mg/dL (7-17); Calcium 9.3 mg/dL (8.4-10.2); Carbon Dioxide 24 mmol/L (22-30); Chloride 104 mmol/L (98-107); Glucose 83 mg/dL (74-99); Non-African American GFR(CKD) 82 (>60 ml/min/1.73 sqM); Sodium 136 mmol/L (137-145); Total Bilirubin 0.3 mg/dL (0.2-1.3); Total Protein 6.8 g/dL (6.3-8.2)
== END | disposition home or self-care (01) ==
LOC: LABPAT 14:38
PROVIDERS: ATTEND Surgery Plastic and Reconstructive Surgery
DX: Z01.812 Encounter for preprocedural laboratory examination (principal)
CPT/HCPCS: 80053; 85025

== ENCOUNTER 2020-09-15 08:00 | Inpatient (IN) | payer BC ==
[~2020-09-15 08:00] MED LIST changes: +CHLORHEXIDINE GLUCONATE 15 ML CUP MUCOUS MEM PRN; +DEXAMETHASONE SOD PHOSPHATE 4 MG/ML 1 ML VIAL IV ONE; +ENOXAPARIN 40 MG/0.4 ML SYRINGE SQ PRN; -LACTATED RINGERS 1,000 ML IV SCH; +LIDOCAINE 1% (10MG/ML) FOR IV START INTRADERMA PRN; +ONDANSETRON 4 MG/2 ML VIAL IVP ONE; +PANTOPRAZOLE 40 MG/10 ML VIAL IVP PRN; +SCOPOLAMINE 1.5MG/72HR PATCH TRANSDERM ONE; +fentaNYL (PF) 50 MCG/ML 2 ML AMP IV PRN
--- NOTE | 2020-09-15 08:24 | P.GSHP ---
History of Present Illness H&P Date: 09/15/20 CHIEF COMPLAINT: Morbid obesity. HISTORY OF PRESENT ILLNESS: Ninoska Joyce is a 50-year-old female who comes in with lifelong morbid obesity. She comes in looking into the sleeve. She has completed bariatric program including medical supervised weight loss, medical risk assessment, cardiac risk assessment, psychological assessment. At height of 5 feet 5 inches, her ideal body weight is 149 pounds. She comes in 239 pounds from 234 pounds, 2 months ago. She has gained 5 pounds in 2 months. Her body mass index is up to 41.2. She is 90 pounds overweight. PAST MEDICAL HISTORY: 1. Morbid obesity due to excess calories 2. Body mass index of 37.3, initial 3. Panniculitis 4. Osteoarthritis of the hips 5. Osteoarthritis of the knees 6. Osteoarthritis of the feet 7. Colon polyps 8. Kidney stones. PAST SURGICAL HISTORY: 1. [place] tooth extraction 2. Colonoscopy 3. Dental implants HOME MEDICATIONS: Home Medications Medication Instructions Recorded Confirmed Norgestimate-Ethinyl Estradiol 1 each PO QAM 06/18/14 09/10/20 [Tri-Sprintec Tablet] Multivitamins, Thera [Multivitamin 1 tab PO DAILY 01/08/19 09/10/20 (formulary)] Cholecalciferol [Vitamin D3 (25 25 mcg PO DAILY 07/11/20 09/10/20 Mcg = 1000 Iu)] Cyanocobalamin (Vitamin B-12) 1,000 mcg PO DAILY 07/11/20 09/10/20 [Vitamin B-12] Glucosamine/Chondr Strauss A Sod [Osteo 1 each PO DAILY 07/11/20 09/10/20 Bi-Flex Caplet] Vitamin C/Biotin [Hair, Skin and 1 tab PO DAILY 07/11/20 09/10/20 Nails] Cetirizine HCl [Zyrtec] 10 mg PO DAILY 07/14/20 09/10/20 Ergocalciferol [Vitamin D2 (1250 1,250 mcg PO WEEKLY 07/21/20 09/10/20 Mcg = 31199 Iu)] Zinc 50 mg PO DAILY 07/21/20 09/10/20 Ascorbic Acid [Vitamin C] 1,000 mg PO DAILY 09/10/20 09/10/20 Cannabidiol (Cbd) [Epidiolex] 1 dose TOPICAL DAILY PRN 09/10/20 09/10/20 Citrimax 1 dose PO DAILY 09/10/20 L.acidoph,Paracasei, B.lactis 1 each PO DAILY 09/10/20 09/10/20 [Probiotic] Magnesium Citrate 0 ml PO DAILY 09/10/20 09/10/20 ALLERGIES: Allergies Allergy/AdvReac Type Severity Reaction Status Date / Time codeine AdvReac Nausea & Verified 09/10/20 15:29 Vomiting Penicillins AdvReac THRUSH Verified 09/10/20 15:29 SOCIAL HISTORY: Past tobacco use. FAMILY HISTORY: No family history of ulcerative colitis disease or Crohn's disease. Family history of morbid obesity. No lupus in the family. No reports of stomach or esophageal cancer. Hiatal hernia in mother. REVIEW OF ORGAN SYSTEMS: CONSTITUTIONAL: At height of 5 feet 5 inches, her ideal body weight is 149 pounds. She comes in 234 pounds from 224 pounds, 3 months ago. She has gained 11 pounds in 3 months. Her body mass index is up to 38.8. She is 86 pounds overweight. HEENT: Denies any active troubles with vision or hearing. ENDOCRINE: Denies diabetes. No hypothyroidism. CARDIOVASCULAR: Denies past reports of palpitations or heart attacks or chest pain. RESPIRATORY: Has daytime somnolence. Denies asthma. She has fatigue. GASTROINTESTINAL: Denies any bright red blood per rectum. No diarrhea. No con stipation. She has nausea and vomiting. MUSCULOSKELETAL: Has lower back pain and joint pain. Has osteoarthritis of the knees. NEURO: No headaches. No seizure disorders. PSYCH: Denies depression. No suicidal ideation. RHEUMATOLOGIC: No lupus. No rheumatoid arthritis. HEMATOLOGIC: Denies any abnormal bleeding or bruising. No personal history of DVTs. SKIN: No rash. No skin cancer. PHYSICAL EXAM: VITAL SIGNS: Height 5 foot 5 inches, weight 239 pounds. BMI 40.55 GENERAL: Well-developed in no acute distress. HEENT: No scleral icterus. Extraocular movements grossly intact. Hears conversational speech. No nasal drainage. NECK: Supple without lymphadenopathy. CHEST: Nonlabored respirations with equal bilateral excursions. CARDIOVASCULAR: Regular rate and regular rhythm. Distal 2+ pulses. ABDOMEN: Obese, soft, nontender, nondistended. MUSCULOSKELETAL: No clubbing, cyanosis. NEURO: No focal or lateralizing signs. Cranial nerves 2 through 12 grossly within normal limits. PSYCH: Appropriate affect. Alert and oriented to person, place and time. SKIN: Good skin turgor. Well perfused. ASSESSMENT: 1. Morbid obesity due to excess calories 2. Body mass index of 41.2 3. Panniculitis 4. Osteoarthritis of the hips 5. Osteoarthritis of the knees 6. Osteoarthritis of the feet 7. Colon polyps 8. Family history hiatal hernia 9. Leukocytosis 10. Hypertriglyceridemia 11. Vitamin D deficiency 12. Secondary hyperparathyroidism 13. Copper excess 14. Zinc deficiency 15. Gastric ulcers PLAN: 1. Bariatric options between a sleeve, band and a Gaby-en-Y gastric bypass were reviewed in detail. The patient elected for a sleeve gastrectomy. Robotic assisted approach described. 2. The [place] [facility] Data was also reviewed with benefits and risks as described. 3. An 8 page second-generation bariatric consent form was reviewed in detail including potential of bleeding, infection, leaks, adequate weight loss, nutritional deficiencies which the patient demonstrated understanding of the risks. 4. A 2 week high-protein low caloric 800 kcal diet described to address hepatomegaly. 5. Preoperative labs including complete metabolic panel and CBC with type and screen recommended. 6. DVT prophylaxis per [place] [facility]. 7. Antibiotic prophylaxis. 8. Inpatient hospitalization anticipated for more than 2 nights. 9. All questions and concerns were addressed with the patient. Past Medical History Past Medical History: Osteoarthritis (OA) Additional Past Medical History / Comment(s): HX KIDNEY STONES, ulcers. "valve bottom of heart sticks open blood flows wrong way on the rare occasion". seaonal allergies History of Any Multi-Drug Resistant Organisms: None Reported Additional Past Surgical History / Comment(s): EGD. WISDOM TEETH REMOVED. COLONOSCOPY. DENTAL IMPLANTS Past Anesthesia/Blood Transfusion Reactions: No Reported Reaction, Motion Sickness Additional Past Anesthesia/Blood Transfusion Reaction / Comment(s): NEVER HAS HAD GENERAL ANESTHESIA. Smoking Status: Former smoker - Past Family History Mother Additional Family Medical History / Comment(s): TO DELAYED DROWNING. Father Family Medical History: Cancer, Dementia Additional Family Medical History / Comment(s): ALZHEIMER'S, kidney cancer metastasized to lung Sister(s) Family Medical History: Cancer Additional Family Medical History / Comment(s): SISTER AND NIECE-CERVICAL CA Medications and Allergies Home Medications Medication Instructions Recorded Confirmed Type Norgestimate-Ethinyl Estradiol 1 each PO QAM 06/18/14 09/10/20 History [Tri-Sprintec Tablet] Multivitamins, Thera [Multivitamin 1 tab PO DAILY 01/08/19 09/10/20 History (formulary)] Cholecalciferol [Vitamin D3 (25 25 mcg PO DAILY 07/11/20 09/10/20 History Mcg = 1000 Iu)] Cyanocobalamin (Vitamin B-12) 1,000 mcg PO DAILY 07/11/20 09/10/20 History [Vitamin B-12] Glucosamine/Chondr Strauss A Sod [Osteo 1 each PO DAILY 07/11/20 09/10/20 History Bi-Flex Caplet] Vitamin C/Biotin [Hair, Skin and 1 tab PO DAILY 07/11/20 09/10/20 History Nails] Cetirizine HCl [Zyrtec] 10 mg PO DAILY 07/14/20 09/10/20 History Ergocalciferol [Vitamin D2 (1250 1,250 mcg PO WEEKLY 07/21/20 09/10/20 History Mcg = 50255 Iu)] Zinc 50 mg PO DAILY 07/21/20 09/10/20 History Ascorbic Acid [Vitamin C] 1,000 mg PO DAILY 09/10/20 09/10/20 History Cannabidiol (Cbd) [Epidiolex] 1 dose TOPICAL DAILY PRN 09/10/20 09/10/20 History Citrimax 1 dose PO DAILY 09/10/20 History L.acidoph,Paracasei, B.lactis 1 each PO DAILY 09/10/20 09/10/20 History [Probiotic] Magnesium Citrate 0 ml PO DAILY 09/10/20 09/10/20 History Allergies Allergy/AdvReac Type Severity Reaction Status Date / Time codeine AdvReac Nausea & Verified 09/10/20 15:29 Vomiting Penicillins AdvReac THRUSH Verified 09/10/20 15:29
[2020-09-15] MEDS: LACTATED RINGERS 1,000 ML IV SCH (12:01)
[2020-09-15] MEDS ORDERED: ePHEDrine SULFATE/0.9% NACL/PF 50 MG/5 ML SYRINGE IV ONE (12:05)
[2020-09-15] MEDS ORDERED: MIDAZOLAM 2 MG/2 ML VIAL ONE (12:05)
[2020-09-15] MEDS ORDERED: PHENYLEPHRINE-0.9% NACL SYG 1,000 MCG/10 ML SYRINGE ONE (12:05)
[2020-09-15] MEDS ORDERED: HYDROmorphone (PF) 1 MG/ML ONE (12:05)
[2020-09-15] MEDS ORDERED: NEOSTIGMINE 1 MG/ML 10 ML VIAL ONE (12:05)
[2020-09-15] MEDS ORDERED: LIDOCAINE 1% INJ 10MG/ML (20 ML MDV) ONE (12:05)
[2020-09-15] MEDS ORDERED: SUCCINYLCHOLINE CHLORIDE 100 MG/5 ML SYR IV ONE (12:05)
[2020-09-15] MEDS ORDERED: WATER FOR INJECTION, STERILE 10 ML VIAL IV ONE (12:05)
[2020-09-15] MEDS ORDERED: fentaNYL (PF) 50 MCG/ML 2 ML AMP ONE (12:05)
[2020-09-15] MEDS ORDERED: GLYCOPYRROLATE 0.2 MG/ML 2 ML VIAL ONE (12:05)
[2020-09-15] MEDS ORDERED: ROCURONIUM 10 MG/ML (5 ML VIAL) IV ONE (12:05)
[2020-09-15] MEDS ORDERED: PROPOFOL 10 MG/ML 20 ML VIAL IV ONE (12:05)
[2020-09-15] MEDS ORDERED: LIDOCAINE 1%-EPI 1:100,000 20 ML VIAL SQ ONE (13:05)
[2020-09-15] MEDS ORDERED: LACTATED RINGERS 1,000 ML IV ONE (13:51)
[2020-09-15] MEDS ORDERED: NALOXONE 0.4 MG/ML 1 ML VIAL IV PRN (15:06)
[2020-09-15] MEDS ORDERED: HYDROmorphone 1 MG/ML 1 ML SYRINGE IVP PRN (15:06)
[2020-09-15] MEDS ORDERED: diphenhydrAMINE 50 MG/ML 1 ML VIAL IVP PRN (15:06)
[2020-09-15] MEDS ORDERED: DEXAMETHASONE SOD PHOSPHATE 10 MG/ML 1 ML VIAL IV PRN (15:10)
--- NOTE | 2020-09-15 15:16 | P.OP ---
Date of Procedure: 09/15/20 Description of Procedure: SURGEON: EFREN PASCUAL MD PREOPERATIVE DIAGNOSES: 1. Morbid obesity due to excess calories 2. Body mass index of 57.7, initial 3. Panniculitis 4. Osteoarthritis of the hips 5. Osteoarthritis of the knees 6. Osteoarthritis of the feet 7. Colon polyps 8. Family history hiatal hernia 9. Leukocytosis 10. Hypertriglyceridemia 11. Vitamin D deficiency 12. Secondary hyperparathyroidism 13. Copper excess 14. Zinc deficiency 15. Gastric ulcers POSTOPERATIVE DIAGNOSES: 1. Morbid obesity due to excess calories 2. Body mass index of 57.7, initial 3. Panniculitis 4. Osteoarthritis of the hips 5. Osteoarthritis of the knees 6. Osteoarthritis of the feet 7. Colon polyps 8. Family history hiatal hernia 9. Leukocytosis 10. Hypertriglyceridemia 11. Vitamin D deficiency 12. Secondary hyperparathyroidism 13. Copper excess 14. Zinc deficiency 15. Gastric ulcers OPERATION: 1. Robotic assisted daVinci Xi laparoscopic sleeve gastrectomy with 40-Finnish bougie, multiport. 2. Intraoperative esophagogastroduodenoscopy. ANESTHESIA: Gen. local anesthetic ESTIMATED BLOOD LOSS: 10 mL SPECIMENS REMOVED: Sleeve gastrectomy COMPLICATIONS: None. FINDINGS: 1. Negative intraoperative esophagogastrojejunoscopy leak test. 2. No hepatomegaly and no large hiatus hernia. 3. Total of 3 staplers used including 3 - 60 mm blue robot lee and 3 - 60 mm green robot loads used to create the gastric sleeve. 4. Sleeve gastrectomy, 29 x 5 cm 5. Hypoplasia left liver INDICATIONS: Ninoska Joyce is a 50-year-old female who comes in with lifelong morbid obesity. She comes in looking into the sleeve. She has completed bariatric program including medical supervised weight loss, medical risk assessment, cardiac risk assessment, psychological assessment. At height of 5 feet 5 inches, her ideal body weight is 149 pounds. She comes in 222 pounds from 239 pounds, 2 months ago. She has lost 16 pounds in 2 months. All surgical options for morbid obesity had been described using the [place] bariatric surgery collaborative comorbidity resolution including complication risk score. A second-generation bariatric consent form was described in detail including the possibility of protein malnutrition, leaks, gastric stricture, venous thrombosis, gastroesophageal reflux disease, need for further surgery for which she demonstrated understanding. Benefits and risks of the procedure were described at length. Informed consent was obtained. DESCRIPTION: The patient was brought into the operating room theater. Preoperatively she had received Lovenox subcutaneously for DVT prophylaxis. Additionally she had Peridex oral solution as an oral decontaminant. After general induction, the abdomen was prepped and draped in standard sterile fashion. An Ioban draping was placed along the abdomen. A robotic da Forrest Xi system was prepped and primed. At 15 cm from the xiphoid, proposed port sites were marked with indelible marker along the anterior axillary line bilaterally, mid axillary line bilaterally with each ports were marked 10 to 15 cm from each other. The diploma dental assistant port was marked along the left lateral abdominal wall. The robotic stapler port was marked for the right midclavicular line. A 5 mm 0 degrees laparoscopic trocar entry was performed along the left upper quadrant. The abdomen was insufflated to 15 mmHg pressure was tolerated well. Diagnostic laparoscopy demonstrated no injury to bowel, viscera, or mesentery. No evidence of large hiatus hernia was identified. The liver edge was sharp consistent with 2 week low-carb high-protein diet. Hypoplasia left liver. A 8 mm port was placed along the left upper abdominal wall after exchanging the 5 mm port. A separate 8 mm port was placed along the left lateral abdominal wall. Please note that the ports were placed at least 20 cm away from the target anatomy. Care was taken to check each robotic arms were safely away from collision with the bed or the patient. At the epigastrium, a medium sized Mckay liver retractor was placed under direct visualization with the [employer] placed under the right shoulder of the patient. Next, 12-mm robot stapler port was placed along the right upper quadrant. The camera 8-mm port was maintained along the epigastrium. The patient was repositioned in reverse Trendelenburg position at 21-degrees after lowering the bed. The robot was docked along the left side of the patient. Using a grasper for arm 4, a vessel sealer for arm 3, including grasper for arm 1, the robotic system was docked and primed as described. Instruments were interchanged by the diploma dental assistant for stapler loads. The camera was placed at 30- degrees down. I had sat at the console. The pylorus was identified and 6 cm proximally along the greater curvature of the stomach, the short gastrics were mobilized upwards to the angle of His using a vessel sealer. Hemostasis was excellent during this portion of the procedure. Next, the upper pole of the stomach was adherent to the left ashwin, which was gently dissected free using atraumatic grasper. I went to the head of the bed and placed 40-Finnish blunt bougie into the stomach. The bougie was readjusted by the nurse appeals board referee. Robotic stapler green load 60 mm 3 followed by blue 60 mm x 3 loads were used to create the sleeve. Initial firing was across the antrum of the stomach towards the angle of His. The staple line was linear without corkscrewing. The space from the angularis incisura of the sleeve was approximately 4 cm. I then went to the head of the bed to perform the intraoperative esophagogastroduodenoscopy leak test. The bougie was withdrawn. The upper pole of the stomach was bathed using normal saline solution. The scope was withdrawn with careful inspection along the staple line for which no leaks were found along the entire length. Additionally,the sleeve was completely hemostatic without any encroachment along the angularis incisura. Its topology was a soft "J". No stricture was encountered upon placement of the scope. The GI tract was desufflated. The patient tolerated this portion of the procedure well. The scope was completely withdrawn. The robot was undocked. I then rescrubbed into case, whereby the irrigation fluid was aspirated from the abdominal cavity. Tisseel fibrin sealant was placed along the entire staple length. Once dried the Mckay liver retractor was removed. Attention was now brought to removal of the specimen. The distal end of the sleeve gastrectomy specimen was brought out through the 12 mm port at the left upper quadrant. The specimen was gently removed en total. No contamination had occurred during this process. All instruments and pneumoperitoneum including irrigation fluid was removed from the abdominal cavity. The 12 mm port site was closed using 0-Vicryl and Caesar White and irrigated with diluted hydrogen peroxide. The final incisions were closed using subcuticular interrupted suture of 4-0 Monocryl. Exofin was applied to the skin once the skin had been cleansed. OptiFoam dressing was placed along the stomach extraction site. The sleeve specimen was measured and checked also for leaks which none were found. At the end of the procedure, needle, sponge, and instrument count was verified correct by the machine operator slitter technician. The patient was taken to the postanesthesia care unit in stable condition. She had tolerated the procedure well. Patient's sister Tori was notified over the telephone upon completion of case.
[2020-09-15] MEDS: ACETAMINOPHEN IV (For NPO) 1,000 MG in EMPTY BAG 1 BAG IVPB SCH (17:27)
[2020-09-15] MEDS: DEXAMETHASONE SOD PHOSPHATE 4 MG/ML 1 ML VIAL IV SCH (17:30)
[2020-09-15] MEDS: ONDANSETRON 4 MG/2 ML VIAL IVP SCH (17:30)
[2020-09-15] MEDS: KETOROLAC 15 MG/ML 1 ML VIAL IVP SCH (17:30)
[2020-09-15] MEDS: HYOSCYAMINE ORAL DROPS 1.875 MG/15 ML BOTTLE PO SCH (17:31)
[2020-09-15] MEDS: 0.9% NACL WITH KCL 20 MEQ/L 1,000 ML IV SCH (18:25)
[2020-09-15] MEDS: SIMETHICONE 40 MG/0.6 ML DROPS 2,000 MG/30 ML BOTTLE PO SCH (18:25)
[2020-09-15] MEDS: ALBUTEROL NEBULIZED 2.5 MG/3 ML INHALATION SCH ×2 (18:35→23:54)
[2020-09-15] MEDS ORDERED: ceFAZolin 3 GM in SODIUM CHLORIDE 0.9% 100 ML IVPB SCH (20:00)
[2020-09-16] MEDS: 0.9% NACL WITH KCL 20 MEQ/L 1,000 ML IV SCH ×2 (01:04→06:29)
[2020-09-16] MEDS: ACETAMINOPHEN IV (For NPO) 1,000 MG in EMPTY BAG 1 BAG IVPB SCH ×3 (01:05→12:02)
[2020-09-16] MEDS: KETOROLAC 15 MG/ML 1 ML VIAL IVP SCH ×4 (01:07→17:16)
[2020-09-16] MEDS: DEXAMETHASONE SOD PHOSPHATE 4 MG/ML 1 ML VIAL IV SCH ×4 (01:07→17:16)
[2020-09-16] MEDS: ONDANSETRON 4 MG/2 ML VIAL IVP SCH ×4 (01:07→17:16)
[2020-09-16] MEDS: SIMETHICONE 40 MG/0.6 ML DROPS 2,000 MG/30 ML BOTTLE PO SCH ×4 (01:08→17:19)
[2020-09-16] MEDS: HYOSCYAMINE ORAL DROPS 1.875 MG/15 ML BOTTLE PO SCH ×4 (01:08→17:19)
[2020-09-16 01:24] VITALS: RESP 16
[2020-09-16] MEDS: LACTATED RINGERS 1,000 ML IV SCH (07:08)
[2020-09-16] MEDS: LORATADINE 10 MG TAB PO SCH ×2 (08:18→08:32)
[2020-09-16] MEDS: 1: MVI, ADULT NO.4 WITH VIT K 10 ML, THIAMINE 100 MG, FOLIC ACID 1 MG, POTASSIUM CHLORID IV SCH ×12 (08:41→17:21)
[2020-09-16] MEDS ORDERED: ENOXAPARIN 40 MG/0.4 ML SYRINGE SQ SCH (09:00)
[2020-09-16] MEDS ORDERED: PANTOPRAZOLE 40 MG/10 ML VIAL IV SCH (09:00)
[2020-09-16] MEDS: ALBUTEROL NEBULIZED 2.5 MG/3 ML INHALATION SCH ×4 (09:08→19:07)
[2020-09-16 10:52] VITALS: BMI 38.3
[2020-09-16 11:06] LABS: Basophils # (A) 0.01 X 10*3/uL (0.00-0.10); Basophils % (A) 0.1 %; Eosinophils # (A) 0 X 10*3/uL (0.04-0.35); Eosinophils % (A) 0 %; HCT 35.7 % (37.2-46.3); HGB 11.3 g/dL (12.0-15.0); Lymphocytes # (A) 1.07 X 10*3/uL (0.90-5.00); Lymphocytes % (A) 9.3 %; MCH 28.7 pg (27.0-32.0); MCHC 31.7 g/dL (32.0-37.0); MCV 90.6 fL (80.0-97.0); Mean Platelet Volume 10.3 fL (9.5-12.2); Monocytes # (A) 0.35 X 10*3/uL (0.20-1.00); Monocytes % (A) 3.1 %; Neutrophils # (A) 9.98 X 10*3/uL (1.80-7.70); Neutrophils % (A) 87.1 %; Platelet Count 224 X 10*3/uL (140-440); RBC 3.94 X 10*6/uL (4.10-5.20); WBC 11.46 X 10*3/uL (4.50-10.00)
--- NOTE | 2020-09-16 11:47 | FL ---
EXAMINATION TYPE: FL UGI DATE OF EXAM: 09/16/2020 COMPARISON: None HISTORY: Post gastric sleeve TECHNIQUE: A single contrast UGI study is performed. FINDINGS: Contrast passes from the distal esophagus through the gastric sleeve with moderate hesitanc y. No extravasation of contrast is evident. Free air is under the right diaphragm. Overhead radiographs were obtained which are unremarkable. IMPRESSIONS: 1. Moderate hesitancy passing through the gastric sleeve. No obstruction is evident. 2. No extravasation identified.
[2020-09-16 12:26] LABS: African American GFR (CKD) 85.2 (60.0-200.0); Anion Gap 11.8 mmol/L (4.00-12.00); Calcium 8.5 mg/dL (8.7-10.3); Carbon Dioxide 19.2 mmol/L (21.6-31.8); Non-African American GFR(CKD) 73.5 (60.0-200.0); Phosphorus 2.6 mg/dL (2.4-5.1); Potassium 4.6 mmol/L (3.5-5.5)
[2020-09-16 14:35] VITALS: BP 153/82; PULSE 85; TEMP 98.4
--- NOTE | 2020-09-16 23:03 | P.DS ---
Providers Date of admission: 09/15/20 11:04 Expected date of discharge: 09/16/20 Attending physician: Macie eVga Primary care physician: Tyler Buck - Discharge Diagnosis(es) (1) BMI 40.0-44.9, adult Status: Acute (2) Morbid obesity due to excess calories Status: Acute (3) Osteoarthritis of both knees Status: Acute (4) Osteoarthritis of hips, bilateral Status: Acute (5) Osteoarthritis of lower back Status: Acute Hospital Course: POSTOPERATIVE DIAGNOSES: 1. Morbid obesity due to excess calories 2. Body mass index of 57.7, initial 3. Panniculitis 4. Osteoarthritis of the hips 5. Osteoarthritis of the knees 6. Osteoarthritis of the feet 7. Colon polyps 8. Family history hiatal hernia 9. Leukocytosis 10. Hypertriglyceridemia 11. Vitamin D deficiency 12. Secondary hyperparathyroidism 13. Copper excess 14. Zinc deficiency 15. Gastric ulcers COURSE: Ninoska Joyce is a 50-year-old female who comes in with lifelong morbid obesity. She has completed bariatric program including medical supervised weight loss, medical risk assessment, cardiac risk assessment, psychological assessment. She underwent sleeve gastrectomy without complications. Esophagram was negative for leak or obstruction. She was tolerating liquids. Discharge instructions were reviewed in detail including discharge bariatric diet. Follow up in the bariatric center in 3 days were reviewed. All questions were addressed. Medical reconciliation was completed. Procedures: OPERATION: 1. Robotic assisted daVinci Xi laparoscopic sleeve gastrectomy with 40-Yoruba bougie, multiport. 2. Intraoperative esophagogastroduodenoscopy. ANESTHESIA: Gen. local anesthetic ESTIMATED BLOOD LOSS: 10 mL SPECIMENS REMOVED: Sleeve gastrectomy COMPLICATIONS: None. FINDINGS: 1. Negative intraoperative esophagogastrojejunoscopy leak test. 2. No hepatomegaly and no large hiatus hernia. 3. Total of 3 staplers used including 3 - 60 mm blue robot lee and 3 - 60 mm green robot loads used to create the gastric sleeve. 4. Sleeve gastrectomy, 29 x 5 cm 5. Hypoplasia left liver Patient Condition at Discharge: Good Plan - Discharge Summary Discharge Rx Participant: Yes New Discharge Prescriptions: New bisacodyL [Dulcolax] 5 mg PO DAILY PRN #10 tablet. PRN Reason: Constipation Simethicone 40 mg/0.6 ml Drops [Mylicon Drops] 40 mg PO PCHS PRN #30 ml PRN Reason: Gas Omeprazole [PriLOSEC] 40 mg PO DAILY #30 capsule. Acetaminophen Oral Susp [Tylenol Oral Susp] 500 mg PO Q4-6H PRN #400 ml PRN Reason: Pain Ondansetron Odt [Zofran Odt] 4 mg PO Q8HR PRN #9 tab PRN Reason: Nausea Continue Norgestimate-Ethinyl Estradiol [Tri-Sprintec Tablet] 1 each PO QAM Cetirizine HCl [Zyrtec] 10 mg PO DAILY L.acidoph,Paracasei, B.lactis [Probiotic] 1 each PO DAILY Cannabidiol (Cbd) [Epidiolex] 1 dose TOPICAL DAILY PRN PRN Reason: Pain Discontinued Multivitamins, Thera [Multivitamin (formulary)] 1 tab PO DAILY Vitamin C/Biotin [Hair, Skin and Nails] 1 tab PO DAILY Cholecalciferol [Vitamin D3 (25 Mcg = 1000 Iu)] 25 mcg PO DAILY Glucosamine/Chondr Strauss A Sod [Osteo Bi-Flex Caplet] 1 each PO DAILY Ergocalciferol [Vitamin D2 (1250 Mcg = 75919 Iu)] 1,250 mcg PO WEEKLY Zinc 50 mg PO DAILY Ascorbic Acid [Vitamin C] 1,000 mg PO DAILY Magnesium Citrate 0 ml PO DAILY Cyanocobalamin (Vitamin B-12) [Vitamin B-12] 1,000 mcg PO DAILY Citrimax 1 dose PO DAILY Discharge Medication List Norgestimate-Ethinyl Estradiol [Tri-Sprintec Tablet] 1 each PO QAM 06/18/14 [History] Cetirizine HCl [Zyrtec] 10 mg PO DAILY 07/14/20 [History] Cannabidiol (Cbd) [Epidiolex] 1 dose TOPICAL DAILY PRN 09/10/20 [History] L.acidoph,Paracasei, B.lactis [Probiotic] 1 each PO DAILY 09/10/20 [History] Acetaminophen Oral Susp [Tylenol Oral Susp] 500 mg PO Q4-6H PRN #400 ml 09/16/20 [Rx] Omeprazole [PriLOSEC] 40 mg PO DAILY #30 capsule. 09/16/20 [Rx] Ondansetron Odt [Zofran Odt] 4 mg PO Q8HR PRN #9 tab 09/16/20 [Rx] Simethicone 40 mg/0.6 ml Drops [Mylicon Drops] 40 mg PO HS PRN #30 ml 09/16/20 [Rx] bisacodyL [Dulcolax] 5 mg PO DAILY PRN #10 tablet. 09/16/20 [Rx] [place] [facility] [facility] [place] Patient Instructions/Handouts: How to Use an Incentive Spirometer (DC), Nutrition after Bariatric Surgery (DC), Laparoscopic Sleeve Gastrectomy (DC) Activity/Diet/Wound Care/Special Instructions: Continue to use incentive spirometry to prevent pneumonias. Please continue to ambulate at home to prevent blood clots in legs. Please notify your surgeon if you develop nausea and vomiting including new onset of abdominal pain. No lifting over 4 pounds in 4 weeks, October 15tg Follow-up at the bariatric center. May shower. No soaking in bath tubs, until September 29. Drink 64 oz of fluid daily. Start protein shakes on . Notify bariatric center for temp over 101.0, increased pain, drainage from incisions. No straws or carbonated beverages. Liquid diet only. Sugar content should be less than 6 g to avoid dumping syndrome. Take MOM for constipation. CRUSH, OPEN, OR CUT TABLETS LARGER THAN A SIZE OF A TIC TAC Discharge Disposition: HOME SELF-CARE
[2020-09-17] MEDS ORDERED: bisacodyL 5 MG TABLET.DR PO PRN (08:00)
== END 2020-09-16 19:45 | disposition home or self-care (01) | DRG 620 ==
LOC: 2ORMAIN 11:04 → EEVIPCON 11:04 → 4SSUR 16:33
PROVIDERS: ADMIT Surgery Plastic and Reconstructive Surgery; ATTEND Surgery Plastic and Reconstructive Surgery
PROC: 0DB64Z3 Excision of Stomach, Percutaneous Endoscopic Approach, Vertical (ICD-10-PCS; principal; 2020-09-15 12:10)
PROC: 8E0W8CZ Robotic Assisted Procedure of Trunk Region, Via Natural or Artificial Opening Endoscopic (ICD-10-PCS; principal; 2020-09-15 12:10)
PROC: 0DJ08ZZ Inspection of Upper Intestinal Tract, Via Natural or Artificial Opening Endoscopic (ICD-10-PCS; principal; 2020-09-15 12:10)
DX: E66.01 Morbid (severe) obesity due to excess calories (principal); N25.81 Secondary hyperparathyroidism of renal origin; D72.829 Elevated white blood cell count, unspecified; E55.9 Vitamin D deficiency, unspecified; E60 Dietary zinc deficiency; E78.1 Pure hyperglyceridemia; Z87.11 Personal history of peptic ulcer disease; Z86.010 Personal history of colon polyps; M16.0 Bilateral primary osteoarthritis of hip; M17.0 Bilateral primary osteoarthritis of knee; M47.9 Spondylosis, unspecified; M79.3 Panniculitis, unspecified; Z68.41 Body mass index [BMI] 40.0-44.9, adult; Z80.51 Family history of malignant neoplasm of kidney; Z82.0 Family history of epilepsy and other diseases of the nervous system; Z87.442 Personal history of urinary calculi; Z87.891 Personal history of nicotine dependence; Z20.822 Contact with and (suspected) exposure to COVID-19; M19.072 Primary osteoarthritis, left ankle and foot; M19.071 Primary osteoarthritis, right ankle and foot; Z88.5 Allergy status to narcotic agent; Z88.0 Allergy status to penicillin
CPT/HCPCS: 36415; 74240; 80051; 82310; 82565; 83735; 84100; 84520; 85025; 86850; 86900; 86901; 87635; 88307

== ENCOUNTER → 2020-09-18 | Outpatient (CLI) | payer BC ==
--- NOTE | 2020-09-18 12:26 | P.PN ---
Subjective Progress Note Date: 09/18/20 DATE OF SERVICE: 09/18/2020 CHIEF COMPLAINT: Morbid obesity. HISTORY OF PRESENT ILLNESS: Ninoska Joyce is a 50-year-old female who is status post sleeve gastrectomy, 09/15/2020. She is POD 3. She is doing well. She is drinking her fluids. Her pain is well controlled. She denies any new complaints. At height of 5 feet 5 inches, her ideal body weight is 149 pounds. Her highest weight was 234 pounds, BMI 39.0. She comes in 227 pounds from 234 pounds, 2 months ago. She has lost 8 pounds in 2 months. Her body mass index is 37.7. Her lifetime weight loss is 7 pounds. Lifetime percent excess weight loss is 9%. She is 78 pounds overweight. PHYSICAL EXAM: VITAL SIGNS: Height 5 foot 5 inches, weight 227 pounds. BMI 37.5 Vital Signs Temp 97.5 F L 09/18/20 13:28 Pulse 73 09/18/20 13:28 Resp BP 141/75 09/18/20 13:28 Pulse Ox GENERAL: Well-developed in no acute distress. HEENT: No scleral icterus. Extraocular movements grossly intact. Hears conversational speech. No nasal drainage. NECK: Supple without lymphadenopathy. CHEST: Nonlabored respirations with equal bilateral excursions. CARDIOVASCULAR: Regular rate and regular rhythm. Distal 2+ pulses. ABDOMEN: Incisions are intact. Has expected indentation at left upper quadrant incision. No infection. MUSCULOSKELETAL: No clubbing, cyanosis. NEURO: No focal or lateralizing signs. Cranial nerves 2 through 12 grossly within normal limits. PSYCH: Appropriate affect. Alert and oriented to person, place and time. SKIN: Good skin turgor. Well perfused. ASSESSMENT: 1. Morbid obesity due to excess calories 2. Body mass index of 39.0, initial 3. Panniculitis 4. Osteoarthritis of the hips 5. Osteoarthritis of the knees 6. Osteoarthritis of the feet 7. Colon polyps 8. Family history hiatal hernia 9. Leukocytosis 10. Hypertriglyceridemia 11. Vitamin D deficiency 12. Secondary hyperparathyroidism 13. Copper excess 14. Zinc deficiency 15. Status post sleeve gastrectomy. PLAN: 1. She is doing well. 2. Follow up 1 week.
[2020-09-18 13:31] VITALS: PULSE 73; TEMP 97.5
[2020-09-18 13:48] VITALS: BP 141/75
[2020-09-18 13:51] VITALS: BMI 37.5
== END ==
LOC: BARWHC3 12:01
PROVIDERS: ATTEND Surgery Plastic and Reconstructive Surgery
DX: E66.01 Morbid (severe) obesity due to excess calories (principal); M79.3 Panniculitis, unspecified; M16.0 Bilateral primary osteoarthritis of hip; M17.0 Bilateral primary osteoarthritis of knee; K63.5 Polyp of colon; D72.829 Elevated white blood cell count, unspecified; E78.1 Pure hyperglyceridemia; E55.9 Vitamin D deficiency, unspecified; N25.81 Secondary hyperparathyroidism of renal origin; E60 Dietary zinc deficiency; Z98.84 Bariatric surgery status; Z83.79 Family history of other diseases of the digestive system; Z68.39 Body mass index [BMI] 39.0-39.9, adult
CPT/HCPCS: 99211

== ENCOUNTER → 2020-09-22 | Outpatient (CLI) | payer BC ==
--- NOTE | 2020-09-22 11:07 | US ---
EXAMINATION TYPE: US venous doppler duplex LE RT DATE OF EXAM: 09/22/2020 10:34 AM COMPARISON: NONE CLINICAL HISTORY: M79.661 Pain right lower limb. SIDE PERFORMED: Right TECHNIQUE: The lower extremity deep venous system is examined utilizing real time linear array sonog liam with graded compression, doppler sonography and color-flow sonography. VESSELS IMAGED: Common Femoral Vein Deep Femoral Vein Greater Saphenous Vein * Femoral Vein Popliteal Vein Small Saphenous Vein * Proximal Calf Veins (* superficial vessels) Right Leg: Positive for DVT starting at mid popliteal vein extending into LSV and proximal calf vein s. IMPRESSION: There is occlusive thrombus beginning at the mid right popliteal vein extending into the lesser saphenous vein and proximal calf veins. The pharmacy picking technician informed the ordering physician of the results and the patient was sent for labs and t hen sent to the bariatric Center, per physician according to technologist's notes.
[2020-09-22 11:41] LABS: HCT 35.8 % (34.0-46.0); HGB 12.5 gm/dL (11.4-16.0); MCH 30.2 pg (25.0-35.0); MCHC 34.9 g/dL (31.0-37.0); MCV 86.6 fL (80.0-100.0); Mean Platelet Volume 7.2; Platelet Count 193 k/uL (150-450); RBC 4.14 m/uL (3.80-5.40); WBC 11.9 k/uL (3.8-10.6)
== END | disposition home or self-care (01) ==
LOC: RADUSWWP 10:04
PROVIDERS: ATTEND Surgery Plastic and Reconstructive Surgery
DX: I82.431 Acute embolism and thrombosis of right popliteal vein (principal); I82.4Y1 Acute embolism and thrombosis of unspecified deep veins of right proximal lower extremity
CPT/HCPCS: 36415; 83880; 85027

== ENCOUNTER → 2020-09-22 | Outpatient (CLI) | payer BC ==
--- NOTE | 2020-09-22 11:40 | P.PN ---
Subjective Progress Note Date: 09/22/20 DATE OF SERVICE: 09/22/2020 CHIEF COMPLAINT: Status post sleeve gastrectomy HISTORY OF PRESENT ILLNESS: Ninoska Joyce is a 50-year-old female who is status post sleeve gastrectomy, 09/15/2020. She is 1 week out. She reports developing new pain Tuesday to Tuesday less than 3 days ago along her leg. She also confirm she has not been ambulating. Patient reports her mother at a young age and unaware of risks. At height of 5 feet 5 inches, her ideal body weight is 149 pounds. Her highest weight was 234 pounds, BMI 39.0. She comes in 220 pounds from 227 pounds, 4 days ago. She has lost 7 pounds in 4 days. Her body mass index is 36.6. Her lifetime weight loss is 14 pounds. Lifetime percent excess weight loss is 17 %. She is 71 pounds overweight. PHYSICAL EXAM: VITAL SIGNS: Height 5 foot 5 inches, weight 220 pounds. BMI 36.3 Vital Signs Temp 98.6 F 09/22/20 15:15 Pulse 90 09/22/20 15:15 Resp 16 09/22/20 15:15 BP 129/85 09/22/20 15:15 Pulse Ox GENERAL: Well-developed in no acute distress. HEENT: No scleral icterus. Extraocular movements grossly intact. Hears conversational speech. No nasal drainage. NECK: Supple without lymphadenopathy. CHEST: Nonlabored respirations with equal bilateral excursions. CARDIOVASCULAR: Regular rate and regular rhythm. Distal 2+ pulses. ABDOMEN: Incisions are intact. No cellulitis. MUSCULOSKELETAL: No clubbing, cyanosis. NEURO: No focal or lateralizing signs. Cranial nerves 2 through 12 grossly wit hin normal limits. PSYCH: Appropriate affect. Alert and oriented to person, place and time. SKIN: Good skin turgor. Well perfused. STUDIES: US of the right leg reviewed with acute DVT of the femoral vein. ASSESSMENT: 1. Morbid obesity due to excess calories 2. Body mass index of 39.0 to 36.6 3. Panniculitis 4. Osteoarthritis of the hips 5. Osteoarthritis of the knees 6. Osteoarthritis of the feet 7. Colon polyps 8. Family history hiatal hernia 9. Leukocytosis 10. Hypertriglyceridemia 11. Vitamin D deficiency 12. Secondary hyperparathyroidism 13. Copper excess 14. Zinc deficiency 15. Status post sleeve gastrectomy. 16. Acute right lower extremity DVT PLAN: 1. She comes in with acute DVT of the femoral vein. I personally spoke to reconditioner oncologist Dr. Moran regarding DVT treatment. 2. Guidelines include Eliquis 10 mg twice a day for 7 days followed by 5 mg twice a day. 3. Patient to follow up for hypercoagulable workup as outpatient. 4. Follow-up in 3 days for repeat CBC
[2020-09-22 15:18] VITALS: BP 129/85; PULSE 90; RESP 16; TEMP 98.6; BMI 36.3
== END | disposition home or self-care (01) ==
LOC: BARWHC3 11:01
PROVIDERS: ATTEND Surgery Plastic and Reconstructive Surgery
DX: E66.01 Morbid (severe) obesity due to excess calories (principal); M79.3 Panniculitis, unspecified; M17.0 Bilateral primary osteoarthritis of knee; M16.0 Bilateral primary osteoarthritis of hip; K63.5 Polyp of colon; D72.829 Elevated white blood cell count, unspecified; E78.1 Pure hyperglyceridemia; E55.9 Vitamin D deficiency, unspecified; N25.81 Secondary hyperparathyroidism of renal origin; I82.401 Acute embolism and thrombosis of unspecified deep veins of right lower extremity; Z98.84 Bariatric surgery status; Z83.79 Family history of other diseases of the digestive system; Z68.39 Body mass index [BMI] 39.0-39.9, adult
CPT/HCPCS: 99211

== ENCOUNTER → 2020-09-24 | Outpatient (CLI) | payer BC ==
[2020-09-24 18:52] LABS: HCT 35.9 % (37.2-46.3); HGB 11.5 g/dL (12.0-15.0); MCH 28.5 pg (27.0-32.0); MCV 89.1 fL (80.0-97.0); Mean Platelet Volume 10.2 fL (9.5-12.2); Platelet Count 271 X 10*3/uL (140-440); RBC 4.03 X 10*6/uL (4.10-5.20); RDW 12.7 % (11.5-14.5)
[2020-09-24 23:48] LABS: African American GFR (CKD) 98.2 (60.0-200.0); Anion Gap 8.9 mmol/L (4.00-12.00); BUN/Creat Ratio 22.5 Ratio (12.00-20.00); Calcium 8.9 mg/dL (8.7-10.3); Carbon Dioxide 22.1 mmol/L (21.6-31.8); Non-African American GFR(CKD) 84.8 (60.0-200.0); Potassium 4.2 mmol/L (3.5-5.5)
== END | disposition home or self-care (01) ==
LOC: LABWHC1 14:00
PROVIDERS: ATTEND Surgery Plastic and Reconstructive Surgery
DX: E66.01 Morbid (severe) obesity due to excess calories (principal)
CPT/HCPCS: 36415; 80048; 85027

== ENCOUNTER → 2020-09-24 | Outpatient (CLI) | payer BC ==
[2020-09-24 15:50] VITALS: BP 134/99; PULSE 90; RESP 18; TEMP 99; BMI 35.8
--- NOTE | 2020-09-24 16:10 | P.PN ---
Subjective Progress Note Date: 09/24/20 DATE OF SERVICE: 09/24/2020 CHIEF COMPLAINT: Status post sleeve gastrectomy HISTORY OF PRESENT ILLNESS: Ninoska Joyce is a 50-year-old female who is status post sleeve gastrectomy, 09/15/2020. She is 11 days out. She developed acute DVT of the right leg. She reports decreased ambulation following discharge home. She is on Eliquis. No blood in stools. She is on starter pack. Her pain in leg is better. At height of 5 feet 5.25 inches, her ideal body weight is 149 pounds. Her highest weight was 234 pounds, BMI 39.0. She comes in 216 pounds from 220 pound, 2 days ago. She has lost 3 pounds in 2 days. Her body mass index is 35.8. Her lifetime weight loss is 17 pounds. Lifetime percent excess weight loss is 21 %. She is 67 pounds overweight. PHYSICAL EXAM: VITAL SIGNS: Height 5 foot 5 inches, weight 216 pounds. BMI 35.8 Vital Signs Temp 99 F 09/24/20 15:38 Pulse 90 09/24/20 15:38 Resp 18 09/24/20 15:38 BP 134/99 09/24/20 15:38 Pulse Ox GENERAL: Well-developed in no acute distress. HEENT: No scleral icterus. Extraocular movements grossly intact. Hears conversational speech. No nasal drainage. NECK: Supple without lymphadenopathy. CHEST: Nonlabored respirations with equal bilateral excursions. CARDIOVASCULAR: Regular rate and regular rhythm. Distal 2+ pulses. ABDOMEN: Incisions are intact. No cellulitis. MUSCULOSKELETAL: No clubbing, cyanosis. Tender along right calf. NEURO: No focal or lateralizing signs. Cranial nerves 2 through 12 grossly within normal limits. PSYCH: Appropriate affect. Alert and oriented to person, place and time. SKIN: Good skin turgor. Well perfused. LABS: Hgb following surgery 11.3, now 11.5 ASSESSMENT: 1. Morbid obesity due to excess calories 2. Body mass index of 39.0 to 35.8 3. Panniculitis 4. Osteoarthritis of the hips 5. Osteoarthritis of the knees 6. Osteoarthritis of the feet 7. Colon polyps 8. Family history hiatal hernia 9. Leukocytosis 10. Hypertriglyceridemia 11. Vitamin D deficiency 12. Secondary hyperparathyroidism 13. Copper excess 14. Zinc deficiency 15. Status post sleeve gastrectomy. 16. Acute right lower extremity DVT PLAN: 1. Continue ambulation. 2. Follow up with senior front end engineer Objective - Vital Signs Vital signs: Vital Signs Temp 99 F 09/24/20 15:38 Pulse 90 09/24/20 15:38 Resp 18 09/24/20 15:38 BP 134/99 09/24/20 15:38 Pulse Ox Intake & Output 09/23/20 09/24/20 09/24/20 18:59 06:59 18:59 Weight 98.43 kg
== END | disposition home or self-care (01) ==
LOC: BARWHC3 14:34
PROVIDERS: ATTEND Surgery Plastic and Reconstructive Surgery
DX: E66.01 Morbid (severe) obesity due to excess calories (principal); M79.3 Panniculitis, unspecified; M16.0 Bilateral primary osteoarthritis of hip; M17.0 Bilateral primary osteoarthritis of knee; K63.5 Polyp of colon; D72.829 Elevated white blood cell count, unspecified; E78.1 Pure hyperglyceridemia; E55.9 Vitamin D deficiency, unspecified; N25.81 Secondary hyperparathyroidism of renal origin; E60 Dietary zinc deficiency; I82.401 Acute embolism and thrombosis of unspecified deep veins of right lower extremity; Z83.79 Family history of other diseases of the digestive system; Z98.84 Bariatric surgery status; Z68.39 Body mass index [BMI] 39.0-39.9, adult
CPT/HCPCS: 99211

== ENCOUNTER → 2020-10-08 | Outpatient (CLI) | payer BC ==
[2020-10-08 13:40] VITALS: BP 120/75; PULSE 76; RESP 16; TEMP 98.5; BMI 34.7
--- NOTE | 2020-10-08 13:50 | P.PN ---
Subjective Progress Note Date: 10/08/20 DATE OF SERVICE: 10/08/2020 CHIEF COMPLAINT: Status post sleeve gastrectomy HISTORY OF PRESENT ILLNESS: Ninoska Joyce is a 50-year-old female who is status post sleeve gastrectomy, 09/15/2020. She is 3 weeks out. She developed DVT of the right leg. She is on blood thinners. Her right knee is sore. She is walking now. She no longer has tenderness along her right calf. She is day 16 for blood thinners. She has lost 17 pounds in 3 weeks. She is getting 60 grams protein daily. She reports low energy. She has low appetite. She is almost 1 month out. At height of 5 feet 5.25 inches, her ideal body weight is 149 pounds. Her highest weight was 234 pounds, BMI 39.0. She comes in 210 pounds from 216 pounds, 2 weeks ago. She has lost 7 pounds in 2 weeks. Her body mass index is 34.7. Her lifetime weight loss is 24 pounds. Lifetime percent excess weight loss is 29 %. She is 61 pounds overweight. PHYSICAL EXAM: VITAL SIGNS: Height 5 foot 5 inches, weight 210 pounds. BMI 34.7 Vital Signs Temp 98.5 F 10/08/20 13:37 Pulse 76 10/08/20 13:37 Resp 16 10/08/20 13:37 BP 120/75 10/08/20 13:37 Pulse Ox GENERAL: Well-developed in no acute distress. HEENT: No scleral icterus. Extraocular movements grossly intact. Hears conversational speech. No nasal drainage. NECK: Supple without lymphadenopathy. CHEST: Nonlabored respirations with equal bilateral excursions. CARDIOVASCULAR: Regular rate and regular rhythm. Distal 2+ pulses. ABDOMEN: Nontender, nondistended. MUSCULOSKELETAL: No clubbing, cyanosis. NEURO: No focal or lateralizing signs. Cranial nerves 2 through 12 grossly within normal limits. PSYCH: Appropriate affect. Alert and oriented to person, place and time. SKIN: Good skin turgor. Well perfused. ASSESSMENT: 1. Morbid obesity due to excess calories 2. Body mass index of 39.0 to 34.7 3. Panniculitis 4. Osteoarthritis of the hips 5. Osteoarthritis of the knees 6. Osteoarthritis of the feet 7. Colon polyps 8. Family history hiatal hernia 9. Leukocytosis 10. Hypertriglyceridemia 11. Vitamin D deficiency 12. Secondary hyperparathyroidism 13. Copper excess 14. Zinc deficiency 15. Status post sleeve gastrectomy. 16. Right lower extremity DVT 17. Chronic anticoagulant PLAN: 1. Referral to hair spring cutter for blood thinner and work up. 2. She has low appetite. Recommend protein intake 75 grams daily 3. She is going to see hair spring cutter in [place], [place]. Dr. Eliza Mattson. 4. Recommend food diary journal 5. Recommend multivitamin in 1 month Objective - Vital Signs Vital signs: Vital Signs Temp 98.5 F 10/08/20 13:37 Pulse 76 10/08/20 13:37 Resp 16 10/08/20 13:37 BP 120/75 10/08/20 13:37 Pulse Ox Intake & Output 10/07/20 10/08/20 10/08/20 18:59 06:59 18:59 Weight 95.254 kg - Labs CBC & Chem 7: 10/08/20 14:03 10/08/20 14:03
[2020-10-08 14:22] LABS: HCT 37.9 % (34.0-46.0); HGB 12.8 gm/dL (11.4-16.0); MCHC 33.8 g/dL (31.0-37.0); MCV 85.6 fL (80.0-100.0); Mean Platelet Volume 7.2; Platelet Count 302 k/uL (150-450); RBC 4.43 m/uL (3.80-5.40); WBC 6.4 k/uL (3.8-10.6)
[2020-10-08 14:33] LABS: Partial Thromboplastin Time 24.5 sec (22.0-30.0); Prothrombin Time 10.7 sec (9.0-12.0)
[2020-10-08 20:39] LABS: % Iron Saturation 19.27 (12.00-45.00); African American GFR (CKD) 85.2 (60.0-200.0); Albumin 4.1 g/dL (3.80-4.90); Albumin/Globulin Ratio 1.78 (1.60-3.17); Anion Gap 6.7 mmol/L (4.00-12.00); BUN/Creat Ratio 15.56 Ratio (12.00-20.00); Calcium 9.4 mg/dL (8.7-10.3); Carbon Dioxide 25.3 mmol/L (21.6-31.8); Chol/HDL Ratio 4.04; Globulin 2.3 g/dL (1.6-3.3); LDL Cholesterol,Calculated 119.6 mg/dL (0.0-131.0); Magnesium 1.9 mg/dL (1.5-2.4); Non-African American GFR(CKD) 73.5 (60.0-200.0); Phosphorus 3.6 mg/dL (2.4-5.1); Potassium 4.5 mmol/L (3.5-5.5); Total Bilirubin 0.6 mg/dL (0.3-1.2); Total Protein 6.4 g/dL (6.2-8.2); VLDL Calculation 26.4 mg/dL (5.00-40.00)
[2020-10-08 21:06] LABS: Hemoglobin A1C 4.9 % (4.0-6.0)
[2020-10-08 22:29] LABS: Ferritin 276.7 ng/mL (10.0-291.0)
[2020-10-08 22:48] LABS: Folate, Serum 14.6 ng/mL
[2020-10-09 13:33] LABS: Zinc, Serum 67 ug/dL (60-130)
[2020-10-10 09:01] LABS: Vitamin A 57 ug/dL (38-106)
[2020-10-10 09:07] LABS: Vit B1(Thiamine) 58 ug/L (38-122)
[2020-10-15 17:08] LABS: Selenium 130 mcg/L (63-160)
--- NOTE | 2020-10-15 17:46 | P.PN ---
Progress Note - Text Progress Note Date: 10/15/20 To whom it may concern: Ninoska Joyce is under my surgical care. She may return to work October 20 without restrictions. Regards, Macie Vega MD, FACS
== END | disposition home or self-care (01) ==
LOC: BARWHC3 13:07
PROVIDERS: ATTEND Surgery Plastic and Reconstructive Surgery
DX: E66.01 Morbid (severe) obesity due to excess calories (principal); M79.3 Panniculitis, unspecified; M17.0 Bilateral primary osteoarthritis of knee; M16.0 Bilateral primary osteoarthritis of hip; K63.5 Polyp of colon; Z83.79 Family history of other diseases of the digestive system; D72.829 Elevated white blood cell count, unspecified; E78.1 Pure hyperglyceridemia; E55.9 Vitamin D deficiency, unspecified; N25.81 Secondary hyperparathyroidism of renal origin; E60 Dietary zinc deficiency; I82.401 Acute embolism and thrombosis of unspecified deep veins of right lower extremity; Z79.01 Long term (current) use of anticoagulants; Z98.84 Bariatric surgery status; Z68.39 Body mass index [BMI] 39.0-39.9, adult
CPT/HCPCS: 80053; 80061; 82306; 82525; 82607; 82728; 82746; 83036; 83540; 83550; 83735; 83970; 84100; 84134; 84255; 84425; 84443; 84590; 84630; 85027; 85610; 85730; 99211

== ENCOUNTER → 2020-10-22 | Outpatient (CLI) | payer BC ==
[2020-10-22 14:41] VITALS: BP 117/75; PULSE 72; RESP 18; TEMP 98.1; BMI 34.3
--- NOTE | 2020-10-22 15:44 | P.PN ---
Subjective Progress Note Date: 10/22/20 She reports no new leg pain. She saw the biomathematician and reports occassional fatigue. Her blood work is good from 2 weeks ago. She feels anxious. She is looking to return to work after 6 weeks. Restrictions applied. Follow up in 3 month postop. Objective - Vital Signs Vital signs: Vital Signs Temp 98.1 F 10/22/20 14:34 Pulse 72 10/22/20 14:34 Resp 18 10/22/20 14:34 BP 117/75 10/22/20 14:34 Pulse Ox Intake & Output 10/21/20 10/22/20 10/22/20 18:59 06:59 18:59 Weight 94.347 kg
--- NOTE | 2020-10-22 15:54 | P.PN ---
Progress Note - Text Progress Note Date: 10/22/20 To whom it may concern: Ninoska Joyce is under my surgical care. She may return to work with 20 pound restriction, October 27 to November 23. She will be off restrictions, Tuesday November 24, 2020. Regards, Macie Vega MD, FACS
== END | disposition home or self-care (01) ==
LOC: BARWHC3 14:22
PROVIDERS: ATTEND Surgery Plastic and Reconstructive Surgery
DX: E66.01 Morbid (severe) obesity due to excess calories (principal); Z71.3 Dietary counseling and surveillance
CPT/HCPCS: 97803; 99211

== ENCOUNTER → 2020-12-17 | Outpatient (CLI) | payer BC ==
[2020-12-17 14:38] VITALS: BP 114/79; PULSE 71; RESP 18; TEMP 98.2
--- NOTE | 2020-12-17 15:05 | P.PN ---
Subjective Progress Note Date: 12/17/20 She is seeing a mink farmer outside of town. She is still on a blood thinner. She is pending additional studies. She is 3 months out. She has occasional cramp along the back of the right leg. She is unsure whether she will need life long blood thinner. Eliquis 5 mg daily. Recommend full blood work. Need medical release for mink farmer visit. No gastroesophageal reflux disease. She is off her control pills. She has not had a period. She is under her protein at 45 grams daily. Needs goal of 75 grams of protein. Objective - Vital Signs Vital signs: Vital Signs Temp 98.2 F 12/17/20 14:28 Pulse 71 12/17/20 14:28 Resp 18 12/17/20 14:28 BP 114/79 12/17/20 14:28 Pulse Ox Intake & Output 12/16/20 12/17/20 12/17/20 18:59 06:59 18:59 Weight 94 kg
[2020-12-17 15:43] VITALS: BMI 34.0
[2020-12-17 15:52] LABS: HCT 35.8 % (34.0-46.0); HGB 12.3 gm/dL (11.4-16.0); MCH 30.1 pg (25.0-35.0); MCHC 34.4 g/dL (31.0-37.0); MCV 87.4 fL (80.0-100.0); Mean Platelet Volume 7.1; Platelet Count 209 k/uL (150-450); RBC 4.09 m/uL (3.80-5.40); RDW 13.8 % (11.5-15.5); WBC 7.7 k/uL (3.8-10.6)
[2020-12-17 16:22] LABS: INR 0.9 (<1.2); Partial Thromboplastin Time 23.1 sec (22.0-30.0); Prothrombin Time 10.2 sec (9.0-12.0)
[2020-12-17 22:39] LABS: Hemoglobin A1C 5.2 % (4.0-6.0)
[2020-12-18 02:31] LABS: % Iron Saturation 11.25 (12.00-45.00); African American GFR (CKD) 66.8 (60.0-200.0); Albumin 4.2 g/dL (3.80-4.90); Albumin/Globulin Ratio 1.91 (1.60-3.17); Anion Gap 10.2 mmol/L (4.00-12.00); Calcium 8.7 mg/dL (8.7-10.3); Carbon Dioxide 24.8 mmol/L (21.6-31.8); Chol/HDL Ratio 3.03; Globulin 2.2 g/dL (1.6-3.3); LDL Cholesterol,Calculated 87.4 mg/dL (0.0-131.0); Non-African American GFR(CKD) 57.7 (60.0-200.0); Phosphorus 4.1 mg/dL (2.4-5.1); Potassium 3.7 mmol/L (3.5-5.5); Total Bilirubin 0.4 mg/dL (0.3-1.2); Total Protein 6.4 g/dL (6.2-8.2); VLDL Calculation 34.6 mg/dL (5.00-40.00)
[2020-12-18 02:41] LABS: Ferritin 127.2 ng/mL (10.0-291.0)
[2020-12-18 03:00] LABS: Folate, Serum 21.2 ng/mL
[2020-12-18 10:32] LABS: Zinc, Serum 61 ug/dL (60-130)
[2020-12-19 06:09] LABS: Vitamin A 49 ug/dL (38-106)
[2020-12-19 13:05] LABS: Vit B1(Thiamine) 53 ug/L (38-122)
== END | disposition home or self-care (01) ==
LOC: BARWHC3 14:16
PROVIDERS: ATTEND Surgery Plastic and Reconstructive Surgery
DX: E66.01 Morbid (severe) obesity due to excess calories (principal); E89.1 Postprocedural hypoinsulinemia; D50.8 Other iron deficiency anemias; E44.0 Moderate protein-calorie malnutrition; E55.9 Vitamin D deficiency, unspecified; K74.1 Hepatic sclerosis; N19 Unspecified kidney failure; K50.90 Crohn's disease, unspecified, without complications; Z71.3 Dietary counseling and surveillance
CPT/HCPCS: 36415; 80053; 80061; 82306; 82525; 82607; 82728; 82746; 83036; 83540; 83550; 83735; 83970; 84100; 84134; 84255; 84425; 84443; 84590; 84630; 85027; 85610; 85730; 97803; 99211

== ENCOUNTER → 2021-02-25 | Outpatient (CLI) | payer BC ==
[2021-02-25 14:46] VITALS: BP 131/78; PULSE 66; RESP 18; TEMP 97.9; BMI 32.2
--- NOTE | 2021-02-25 15:05 | P.BASOAP ---
Subjective Progress Note Date: 02/25/21 She denies any DVT. She is still on the blood thinner. She is to be on blood thinners for 6 months. No abdominal pain. No GERD. She is getting 75 to 80 grams of protein a day. She reports trouble with dry bread. She report feeling fatigued. She is working 10 to 12 hrs 6-days per week. Recommend bariatric labs. Recommend check TSH. Objective - Vital Signs Vital signs: Vital Signs Temp 97.9 F 02/25/21 14:43 Pulse 66 02/25/21 14:43 Resp 18 02/25/21 14:43 BP 131/78 02/25/21 14:43 Pulse Ox Intake & Output 02/24/21 02/25/21 02/25/21 18:59 06:59 18:59 Weight 88.451 kg Assessment/Plan Plan: Date: 02/25/21 Initial Weight: 110.393 kg Initial BMI: 40.1 Current Weight: 88.451 kg Current BMI: 32.2 Type of Surgery: Total Volume in Band: Previous Volume: Volume Removed: Volume Added: Band Size:
[2021-02-25 15:45] LABS: HCT 36.6 % (34.0-46.0); HGB 12.4 gm/dL (11.4-16.0); MCH 30.4 pg (25.0-35.0); MCV 89.6 fL (80.0-100.0); Mean Platelet Volume 7.2; Platelet Count 226 k/uL (150-450); RBC 4.08 m/uL (3.80-5.40); RDW 13.6 % (11.5-15.5); WBC 9.5 k/uL (3.8-10.6)
[2021-02-25 16:21] LABS: INR 0.9 (<1.2)
[2021-02-25 16:22] LABS: Partial Thromboplastin Time 22.3 sec (22.0-30.0)
[2021-02-26 08:07] LABS: % Iron Saturation 10.54 (12.00-45.00); ALT 36 U/L (8-44); AST 25 U/L (13-35); African American GFR (CKD) 84.6 (60.0-200.0); Albumin 4.4 g/dL (3.8-4.9); Albumin/Globulin Ratio 1.83 (1.60-3.17); Alkaline Phosphatase 88 U/L (41-126); BUN/Creat Ratio 27.11 Ratio (12.00-20.00); Blood Urea Nitrogen 24.4 mg/dL (9.0-27.0); Calcium 9.1 mg/dL (8.7-10.3); Carbon Dioxide 23.4 mmol/L (21.6-31.8); Chloride 103 mmol/L (96-109); Chol/HDL Ratio 2.77 Ratio; Globulin 2.4 g/dL (1.6-3.3); Glucose 86 mg/dL (70-110); Iron 41 ug/dL (50-170); LDL Cholesterol,Calculated 119.8 mg/dL (0.0-131.0); Magnesium 2.3 mg/dL (1.5-2.4); Phosphorus 4.2 mg/dL (2.4-5.1); Potassium 4.2 mmol/L (3.5-5.5); Prealbumin 26.6 mg/dL (18.0-42.0); Sodium 139 mmol/L (135-145); Total Iron Binding Capacity 392 ug/dL (228-460); Total Protein 6.8 g/dL (6.2-8.2); VLDL Calculation 17.68 mg/dL (5.00-40.00)
[2021-02-26 09:07] LABS: Folate, Serum >20.00 ng/mL (4.40-31.00)
[2021-02-26 14:11] LABS: Zinc, Serum 64 ug/dL (60-130)
[2021-02-27 06:22] LABS: Vitamin A 59 ug/dL (38-106)
[2021-02-27 06:29] LABS: Vit B1(Thiamine) 61 ug/L (38-122)
== END | disposition home or self-care (01) ==
LOC: BARWHC3 14:21
PROVIDERS: ATTEND Surgery Plastic and Reconstructive Surgery
DX: E66.01 Morbid (severe) obesity due to excess calories (principal); D60.8 Other acquired pure red cell aplasias; E44.0 Moderate protein-calorie malnutrition; K74.1 Hepatic sclerosis; N19 Unspecified kidney failure; K50.90 Crohn's disease, unspecified, without complications; Z68.32 Body mass index [BMI] 32.0-32.9, adult
CPT/HCPCS: 80053; 80061; 82306; 82525; 82607; 82728; 82746; 83036; 83540; 83550; 83735; 83970; 84100; 84134; 84255; 84425; 84443; 84590; 84630; 85027; 85610; 85730; 99211

== ENCOUNTER → 2021-04-22 | Outpatient (CLI) | payer BC | END | disposition home or self-care (01) | LOC: LABWHC1 14:21 | PROVIDERS: ATTEND Surgery Plastic and Reconstructive Surgery | DX: E03.9 Hypothyroidism, unspecified (principal) | CPT/HCPCS: 36415; 84443 ==

== ENCOUNTER → 2021-05-12 | Outpatient (CLI) | payer BC ==
--- NOTE | 2021-05-13 10:10 | MM ---
Reason for exam: screening (asymptomatic). Last mammogram was performed 1 year and 4 months ago. History: Patient is nulliparous. Family history of breast cancer in paternal aunt at age 60 and breast cancer in paternal cousin at age 30. Took hormonal contraceptives for 30 years beginning at age 18. Physical Findings: A clinical breast exam by your physician is recommended on an annual basis and results should be correlated with mammographic findings. MG 3D Screening Mammo W/Cad Bilateral CC and MLO view(s) were taken. XCCL view(s) were taken of the left breast. Prior study comparison: January 16, 2020, bilateral MG 3d screening mammo w/cad. September 14, 2018, bilateral MG 3d screening mammo w/cad. There are scattered fibroglandular densities. There is no discrete abnormality. No significant changes when compared with prior studies. ASSESSMENT: Negative, BI-RAD 1 RECOMMENDATION: Routine screening mammogram of both breasts in 1 year.
== END | disposition home or self-care (01) ==
LOC: RADMAMWWP 09:12
PROVIDERS: ATTEND Family Medicine
DX: Z12.31 Encounter for screening mammogram for malignant neoplasm of breast (principal)
CPT/HCPCS: 77063; 77067

== ENCOUNTER → 2021-06-18 | Outpatient (CLI) | payer BC ==
[2021-06-18 16:40] LABS: Partial Thromboplastin Time 23.1 sec (22.0-30.0); Prothrombin Time 10.5 sec (9.0-12.0)
[2021-06-18 23:27] LABS: HCT 42.1 % (37.2-46.3); HGB 13.2 g/dL (12.0-15.0); MCH 28.9 pg (27.0-32.0); MCHC 31.4 g/dL (32.0-37.0); MCV 92.3 fL (80.0-97.0); Mean Platelet Volume 10.1 fL (9.5-12.2); NRBC Per 100 WBC 0 /100 WBCS (0.0-0.0); Platelet Count 269 X 10*3/uL (140-440); RBC 4.56 X 10*6/uL (4.10-5.20); RDW 13.3 % (11.5-14.5); WBC 8.94 X 10*3/uL (4.50-10.00)
[2021-06-19 04:05] LABS: % Iron Saturation 12.93 (12.00-45.00); ALT 26 U/L (8-44); AST 20 U/L (13-35); African American GFR (CKD) 93.6 (60.0-200.0); Albumin 4.6 g/dL (3.8-4.9); Albumin/Globulin Ratio 1.87 (1.60-3.17); Alkaline Phosphatase 91 U/L (41-126); BUN/Creat Ratio 26.45 Ratio (12.00-20.00); Blood Urea Nitrogen 21.9 mg/dL (9.0-27.0); Calcium 9.4 mg/dL (8.7-10.3); Carbon Dioxide 17.1 mmol/L (20.0-27.5); Chloride 100 mmol/L (96-109); Globulin 2.5 g/dL (1.6-3.3); Glucose 111 mg/dL (70-110); Iron 54 ug/dL (50-170); Magnesium 2.2 mg/dL (1.5-2.4); Non-African American GFR(CKD) 80.7 (60.0-200.0); Phosphorus 4.1 mg/dL (2.4-5.1); Potassium 4.1 mmol/L (3.5-5.5); Sodium 141 mmol/L (135-145); Total Iron Binding Capacity 414 ug/dL (228-460)
[2021-06-19 04:47] LABS: Chol/HDL Ratio 2.98 Ratio; LDL Cholesterol,Calculated 97.6 mg/dL (0.0-131.0); Prealbumin 34.5 mg/dL (18.0-42.0)
[2021-06-19 05:00] LABS: Folate, Serum >20.00 ng/mL (4.40-31.00)
[2021-06-19 14:35] LABS: Zinc, Serum 69 ug/dL (60-130)
[2021-06-22 08:53] LABS: Vit B1(Thiamine) 69 ug/L (38-122)
[2021-06-23 00:07] LABS: Selenium 174 mcg/L (63-160)
== END | disposition home or self-care (01) ==
LOC: LABWHC1 14:25
PROVIDERS: ATTEND Surgery Plastic and Reconstructive Surgery
DX: E66.01 Morbid (severe) obesity due to excess calories (principal)
CPT/HCPCS: 36415; 80053; 80061; 82306; 82525; 82607; 82728; 82746; 83036; 83540; 83550; 83735; 83970; 84100; 84134; 84255; 84425; 84443; 84590; 84630; 85027; 85610; 85730

== ENCOUNTER → 2021-10-05 | Outpatient (CLI) | payer BC ==
[2021-10-05 10:57] LABS: INR 0.9 (<1.2); Partial Thromboplastin Time 23.3 sec (22.0-30.0); Prothrombin Time 10.2 sec (9.0-12.0)
[2021-10-05 14:25] LABS: HCT 42.1 % (37.2-46.3); HGB 13.5 g/dL (12.0-15.0); MCH 29.5 pg (27.0-32.0); MCHC 32.1 g/dL (32.0-37.0); MCV 92.1 fL (80.0-97.0); Mean Platelet Volume 9.9 fL (9.5-12.2); NRBC Per 100 WBC 0 /100 WBCS (0.0-0.0); Platelet Count 221 X 10*3/uL (140-440); RBC 4.57 X 10*6/uL (4.10-5.20); RDW 12.7 % (11.5-14.5); WBC 6.92 X 10*3/uL (4.50-10.00)
[2021-10-05 15:51] LABS: % Iron Saturation 22.08 (12.00-45.00); ALT 22 U/L (8-44); AST 22 U/L (13-35); African American GFR (CKD) 93.4 (60.0-200.0); Albumin 4.4 g/dL (3.8-4.9); Alkaline Phosphatase 79 U/L (41-126); BUN/Creat Ratio 19.06 Ratio (12.00-20.00); Blood Urea Nitrogen 15.8 mg/dL (9.0-27.0); Calcium 9.4 mg/dL (8.7-10.3); Carbon Dioxide 24.6 mmol/L (20.0-27.5); Chloride 104 mmol/L (96-109); Globulin 2.5 g/dL (1.6-3.3); Glucose 88 mg/dL (70-110); Iron 88 ug/dL (50-170); Magnesium 2.2 mg/dL (1.5-2.4); Non-African American GFR(CKD) 80.6 (60.0-200.0); Phosphorus 3.4 mg/dL (2.4-5.1); Potassium 4.1 mmol/L (3.5-5.5); Sodium 141 mmol/L (135-145); Total Iron Binding Capacity 399 ug/dL (228-460); Total Protein 6.9 g/dL (6.2-8.2)
[2021-10-05 16:01] LABS: Chol/HDL Ratio 2.89 Ratio; Prealbumin 27.7 mg/dL (18.0-42.0)
[2021-10-06 12:00] LABS: Zinc, Serum 78 ug/dL (60-130)
[2021-10-07 11:33] LABS: Vit B1(Thiamine) 97 ug/L (38-122)
== END | disposition home or self-care (01) ==
LOC: LABWHC1 09:28
PROVIDERS: ATTEND Surgery Plastic and Reconstructive Surgery
DX: E66.01 Morbid (severe) obesity due to excess calories (principal); D50.8 Other iron deficiency anemias; D50.9 Iron deficiency anemia, unspecified; K91.2 Postsurgical malabsorption, not elsewhere classified; E44.1 Mild protein-calorie malnutrition; E45 Retarded development following protein-calorie malnutrition; E46 Unspecified protein-calorie malnutrition; E55.9 Vitamin D deficiency, unspecified; K74.1 Hepatic sclerosis; N19 Unspecified kidney failure; T56.894A Toxic effect of other metals, undetermined, initial encounter; K50.90 Crohn's disease, unspecified, without complications
CPT/HCPCS: 36415; 80053; 80061; 82306; 82525; 82607; 82728; 82746; 83036; 83540; 83550; 83735; 83970; 84100; 84134; 84255; 84425; 84443; 84590; 84630; 85027; 85610; 85730

== ENCOUNTER → 2022-09-16 | Outpatient (CLI) | payer BC ==
--- NOTE | 2022-09-17 18:08 | MM ---
Reason for Exam: Screening (asymptomatic). Last mammogram was performed 1 year(s) and 4 month(s) ago. Patient History: Menarche at age 13. Patient has no children. Perimenopausal. Hormonal Contraceptives, starting at age 18 for 30 years. Paternal cousin had breast cancer, age 30. Paternal aunt had breast cancer, age 60. Risk Values: Merry 5 year model risk: 1.2%. NCI Lifetime model risk: 8.5%. Prior Study Comparison: 09/14/2018 Bilateral Screening Mammogram, [facility]. 01/16/2020 Bilateral Screening Mammogram, [facility]. 05/12/2021 Bilateral Screening Mammogram, [facility]. Tissue Density: There are scattered fibroglandular densities. Findings: Analyzed By CAD. There is no suspicious group of microcalcifications or new suspicious mass in either breast. Overall Assessment: Negative, BI-RAD 1 Management: Screening Mammogram of both breasts in 1 year. . Patient should continue monthly self-breast exams. A clinical breast exam by your physician is recommended on an annual basis. This exam should not preclude additional follow-up of suspicious palpable abnormalities. Note on Merry scores and lifetime risk: 1. A Merry score greater than 3% is considered moderate risk. If this is the case, consider specialist referral to assess eligibility for a risk reducing agent. 2. If overall lifetime risk for the development of breast cancer is 20% or higher, the patient may qualify for future screening with alternating mammogram and breast MRI. Electronically signed and approved by: Rishabh Biggs M.D. Radiologist
== END | disposition home or self-care (01) ==
LOC: RADMAMWWP 11:17
PROVIDERS: ATTEND Family Medicine
DX: Z12.31 Encounter for screening mammogram for malignant neoplasm of breast (principal); Z80.3 Family history of malignant neoplasm of breast
CPT/HCPCS: 77063; 77067

== ENCOUNTER → 2024-01-24 | Outpatient (CLI) | payer BC ==
--- NOTE | 2024-01-26 10:49 | CT ---
EXAMINATION TYPE: CT abdomen pelvis wo con CT DLP: 1164 mGycm, Automated exposure control for dose reduction was used. DATE OF EXAM: 01/24/2024 9:13 AM COMPARISON: None CLINICAL INDICATION: Female, 53 years old with history of M54.50 LOW BACK PAIN N23 RENAL COLIC R11.2 NAUSEA; low back pain, kidney stone protocol TECHNIQUE: Axial CT abdomen pelvis wo con;Sagittal and coronal reformats were created on a separate workstation. Contrast used: mL of , (none if empty) Oral contrast used: without Oral Contrast (none if empty) FINDINGS: LOWER CHEST: Unremarkable ABDOMEN LIVER: Unremarkable GALLBLADDER AND BILE DUCTS: Unremarkable. PANCREAS: Unremarkable. SPLEEN: Unremarkable. ADRENAL GLANDS: Unremarkable. KIDNEYS AND URETERS: Multiple right renal calculi. No evidence for obstructing calculus. Calculi helen ure up to 5 mm. No left renal calculi. PELVIS BLADDER: Unremarkable REPRODUCTIVE: Unremarkable. ABDOMEN & PELVIS STOMACH AND BOWEL: No evidence of bowel obstruction. Surgical changes to the gastric lumen. The appen gayla is normal. PERITONEUM/RETROPERITONEUM: No evidence of pneumoperitoneum or free fluid. VASCULATURE: No evidence of aortic aneurysm. MUSCULOSKELETAL: No acute osseous abnormalities LYMPH NODES: No gross evidence for lymphadenopathy. SOFT TISSUE/ABDOMINAL WALL: Unremarkable IMPRESSION: 1. Multiple nonobstructing right renal calculi. No evidence for obstructive uropathy. There is some mild right perinephric fat stranding correlate for ascending infection. 2. Normal-appearing appendix. 3. No additional evidence for acute process in the abdomen or pelvis. [facility], , 01/26/2024 10:46 AM
== END ==
LOC: RADCTMAIN 08:35
PROVIDERS: ATTEND Family Medicine
CPT/HCPCS: 74176

== ENCOUNTER → 2024-02-27 | Outpatient (CLI) | payer BC ==
--- NOTE | 2024-02-28 09:50 | MM ---
Reason for Exam: Screening (asymptomatic). Last mammogram was performed 1 year(s) and 5 month(s) ago. Patient History: Menarche at age 13. Patient has no children. Postmenopausal. Hormonal Contraceptives, starting at age 18 for 30 years. Paternal cousin had breast cancer, age 30. Paternal aunt had breast cancer, age 60. Risk Values: Merry 5 year model risk: 1.2%. NCI Lifetime model risk: 8.1%. Prior Study Comparison: 06/29/2016 Bilateral Screening Mammogram, [facility]. 08/25/2017 Bilateral Screening Mammogram, [facility]. 09/14/2018 Bilateral Screening Mammogram, [facility]. 01/16/2020 Bilateral Screening Mammogram, [facility]. 05/12/2021 Bilateral Screening Mammogram, [facility]. 09/16/2022 Bilateral MG 3D screening mammo w/cad, [facility]. Tissue Density: There are scattered areas of fibroglandular density. Findings: Analyzed By CAD. There is no suspicious group of microcalcifications or new suspicious mass in either breast. Overall Assessment: Negative, BI-RAD 1 Management: Screening Mammogram of both breasts in 1 year. . Patient should continue monthly self-breast exams. A clinical breast exam by your physician is recommended on an annual basis. This exam should not preclude additional follow-up of suspicious palpable abnormalities. Note on Merry scores and lifetime risk: 1. A Merry score greater than 3% is considered moderate risk. If this is the case, consider specialist referral to assess eligibility for a risk reducing agent. 2. If overall lifetime risk for the development of breast cancer is 20% or higher, the patient may qualify for future screening with alternating mammogram and breast MRI. [facility], , 02/28/2024 9:47 AM. Electronically signed and approved by: New Adames M.D. Radiologis
== END | disposition home or self-care (01) ==
LOC: RADMAMWWP 11:15
PROVIDERS: ATTEND Family Medicine
DX: Z12.31 Encounter for screening mammogram for malignant neoplasm of breast (principal); R92.323 Mammographic fibroglandular density, bilateral breasts; Z78.0 Asymptomatic menopausal state; Z80.3 Family history of malignant neoplasm of breast
CPT/HCPCS: 77063; 77067